=== PATIENT | male | born 1940 | race Caucasian/White ===

== ENCOUNTER → 2020-04-24 14:40 | Outpatient (CLI) | payer MEDICARE, OTHER, SELFPAY ==
[2020-04-25 09:21] LABS: COVID19 Sendout Not Detected (Not Detect)
== END ==
PROVIDERS: Visit Provider Physician Assistant
DX: Z01.812 Encounter for preprocedural laboratory examination (principal)
CPT/HCPCS: 87635

== ENCOUNTER 2020-04-27 08:02 | Day surgery (SDC) | payer MEDICARE, OTHER, SELFPAY ==
[2020-04-23 12:40] VITALS: BMI 25.5
[2020-04-27] VITALS (15 sets, daily range): BP systolic 100–168; BP diastolic 43–75; PULSE 50–83; RESP 10–18; TEMP 36.1–36.7; O2SAT 94–100; BMI 26.1
--- NOTE | 2020-04-27 07:50 | DI.RAD.S_ITS ---
PROCEDURE: XR KNEE RT 1TO2V INDICATIONS: post operative total right knee TECHNIQUE: 2 view(s) of the knee acquired. COMPARISON: None. FINDINGS: Expected postoperative alignment of right knee arthroplasty. Overlying postsurgical changes. Dictated by: Santana Rodríguez M.D. on 04/27/2020 at 16:07 Approved by: Santana Rodríguez M.D. on 04/27/2020 at 16:07
[2020-04-27] MEDS: LACTATED RINGERS 1,000 ML 42 ML IV (08:48)
[2020-04-27] MEDS: CELECOXIB 200 MG CAPSULE PO (08:48)
[2020-04-27] MEDS: ACETAMINOPHEN 325 MG TABLET 975 MG PO (08:48)
[2020-04-27] MEDS: PREGABALIN 75 MG CAPSULE PO (08:48)
--- NOTE | 2020-04-27 09:21 | PM.PREOP ---
Pre-operative Note COVID-19 COVID-19 status: Negative Result date/Date tested (Pos, Neg/Pending): 04/24/20 Interval Note History & Physical reviewed/Exam performed by Physician: Yes Changes to H&P: No
--- NOTE | 2020-04-27 09:33 | PM.OP.1 ---
Operative Date/Time/Diagnoses Date of procedure: 04/27/20 Time of procedure: 11:25 Pre-op diagnosis: Right knee osteoarthritis Post-op diagnosis: same Procedure & Clinicians Procedure: Right total knee replacement Same procedure as scheduled: Yes Indications: The patient has had progressively worsening right knee pain with radiographic changes consistent with arthritis. Non-operative management has failed and the patient has requested total knee replacement. The risks, benefits and alternatives to surgery were discussed with the patient prior to proceeding. Risks discussed included, but were not limited to, failure to relieve pain, stiffness, infection, nerve damage, deep venous thrombosis, pulmonary embolism, stroke, coma, heart attack, permanent paralysis and , as well as the potential need for eventual revision of the prosthetic. Surgeon: Chris Montoya Welding Machine Operator Gas: Samuel Cline Click Yes if Unassisted: No Anesthesia Type: General, Spinal and Local Operative Notes Findings: Severe tricompartmental osteoarthritis Closure Type: primary Specimen(s): none sent Prosthetic devices, grafts, tissues, transplants, or devices: Implants used in this procedure were manufactured by the [employer] and included the BCS II Journey total knee replacement with a size 6 cobalt chromium femur, a size 7 non porous tibial base plate, a 10 mm cross-linked polyethylene tibial insert and a 35 mm oval Elda II patella. Applied: implant(s) Estimated Blood Loss (mL): 25 Blood products transfused: none Tourniquet time (min): 48 Procedure in detail: The patient was seen in the pre-operative area, where the patient identified the right knee as the operative site and this was marked with my initials. The patient received pre-operative antibiotics, and was taken to the operating room and placed on the operative table in the supine position. After satisfactory anesthesia, a full time babysitter out was performed. The right leg was encircled with a tourniquet about the proximal thigh, and the leg was prepared from the toes to the tourniquet with ChloroPrep in the usual fashion and draped through sterile drapes. The leg was elevated and exsanguinated with Eschmark bandage and the tourniquet inflated to 250 mmHg pressure. The knee was approached through an approximately 18 cm incision centered over the patella and carried into the knee through a medial parapatellar arthrotomy. The anterior osteophytes and soft tissues were removed. The rotational landmarks of [place]'s line and the transepicondylar axis were marked on the femur with electrocautery, and intramedullary guide holes for the femur and tibia were created. The distal femoral cut was made in 6 degrees of valgus using the intramedullary guide at the primary cut setting. The proximal tibial cut was then made using the intramedullary guide, taking 9 mm of bone off the less involved side. The extension gap was checked and the rotation of the femoral component confirmed with the gap balancing system. The anterior, posterior and chamfer cuts were then made. The posterior osteophytes and soft tissues were then removed. The posterior capsule was injected with part of a mixture of 60 ml 0.25% Marcaine mixed with 20 ml Exparel and 4 mg of morphine for post-operative pain control. The remainder of this mixture was injected into the capsule and subcutaneous tissues during cement curing. The tibia was prepared with the rotation set by an extra medullary guide. Trial tibial and femoral components were then placed and the intercondylar notch cut through the femoral trial. Range of motion was 0-135 degrees, with good stability throughout the range. The patella was then cut to accommodate the patellar prosthetic. There was no need for a lateral release. The trials were then removed, and the femoral hole plugged with a bone plug. The bone was prepared with pulsatile lavage, and dried with a sponge. Cement was applied and the final prosthetics placed. Excess cement was removed during and after cement curing. After confirming there was no extruded cement posteriorly, the final tibial insert was placed. The knee was copiously irrigated and the tourniquet deflated. Hemostasis was obtained. The capsule was closed with interrupted # 2 polyester suture. The subcutaneous layer was closed with 3-0 Vicryl, and the skin with a running 3-0 V-Lock suture and Dermabond. An Aquacel Ag dressing was applied and the patient was taken to recovery having tolerated the procedure well. Complications: none Post-operative Condition: stable Disposition: PACU Plan for aftercare: The patient will be maintained on a standard total knee replacement protocol with weight bearing as tolerated. The patient will receive aspirin and sequential compression devices for DVT prophylaxis. The patient will be discharged home when safe for the home environment.
[2020-04-27] MEDS: CEFAZOLIN 2 GM/100 ML FROZ.PIGGY IV (09:55)
--- NOTE | 2020-04-27 10:28 | SUR.OPER ---
Supine on padded OR bed. Pillow under head, arms secured on padded armboards <90 degree abduction. Safety belt across torso. Non-operative leg secured with tape over blanket over lower leg. Operative leg secured in DeMayo/Ariel positioner. Foam padded brace at thigh of operative leg.
[2020-04-27] MEDS: TRANEXAMIC ACID 1,000 MG VIAL 1000 MG INJ ×2 (10:38→11:15)
[2020-04-27] MEDS: BUPIVACAINE 0.25% W/ EPI 30 ML VIAL 60 ML INJ (10:38)
[2020-04-27] MEDS: BUPIVACAINE LIPOSOME 266 MG/20 ML VIAL INJ (10:38)
[2020-04-27] MEDS: MORPHINE 4 MG/ML INJ INJ (10:40)
--- NOTE | 2020-04-27 12:11 | SUR.PHASEI ---
aroused spontaneously, answers questions, difficult to determine spinal level as pt is very sleepy. denies pain/nausea
--- NOTE | 2020-04-27 12:13 | SUR.PHASEI ---
bilateral hearing aids in place from the OR
--- NOTE | 2020-04-27 12:34 | SUR.PHASEI ---
Report given, pt stable, to floor by Daxa Mattson RN; tolerating ice chips well.
--- NOTE | 2020-04-27 12:37 | SUR.PHASEI ---
ro room 224, bed down and locked, call light within reach and scd's on pre Daxa Mattson RN
--- NOTE | 2020-04-27 12:38 | SUR.PHASEI ---
clothing bag and two personal bags, hearing aids, & glasses to room with the patient.
--- NOTE | 2020-04-27 12:46 | PC.NURSE ---
Day shift: Pt on unit from PACU at approx 1240. Very sleepy but wakes to voice. PPP strong. CMS ok as he can wiggle toes. VS WNL. RA 97%. Oriented to room and call light. MIKIE wrap w/ Aquacel is CDI. Bed alarm is on.
[2020-04-27] MEDS: LACTATED RINGERS 1,000 ML 100 ML IV (13:05)
[2020-04-27] MEDS: IBUPROFEN 400 MG TABLET PO ×3 (14:40→20:41)
[2020-04-27] MEDS: ACETAMINOPHEN 325 MG TABLET 650 MG PO ×2 (14:40→20:18)
--- NOTE | 2020-04-27 15:56 | PT.IIE ---
Current Diagnoses Unilateral primary osteoarthritis, right knee (04/27/20) Surgery Performed Operation Date: 04/27/20 10:15 Actual Procedures p Total Knee Arthroplasty(Right) - Chris Montoya MD Surgical History (Last Updated 04/23/20 @ 13:30 by Alice Baeza, RN) History of bunionectomy of right great toe (Acute) History of penile implant (Acute) History of repair of left rotator cuff (Acute) History of vasectomy (Acute) Hx of bilateral cataract extraction (Acute) Hx of eye surgery (Acute) Hx of tonsillectomy (Acute) Medical History (Last Updated 04/23/20 @ 13:30 by Alice Baeza RN) Bilateral knee pain (Acute) Easy bruisability (Acute) Hearing impaired (Acute) Heartburn (Acute) HLD (hyperlipidemia) (Acute) Hypothyroid (Acute) EH on CPAP (Acute) Osteoarthritis (Acute) RBBB (Acute) Sinus drainage (Acute) Stomach ulcer (Acute 2019) Physical Therapy Inpatient Evaluation/Re-Eval M1 PT/OT-IP Prior Functional Status Start: 04/27/20 14:44 Freq: NEEDED Status: Active Protocol: Document 04/27/20 15:33 AW (Rec: 04/27/20 15:56 AW [id number]) Medical Review Prior Functional Status Medical History Reviewed Yes Communication WNL Mobility and Gait Pt is an independent community ambulator for distances up to ~1/2 mile. He is limited by bilateral knee pain. Activities of Daily Living and IADL's Independent. 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 Social History Household Members spouse Living Arrangements House Number of Floors (Floors) Two Floors Number of Stairs To Enter/Railing? 4 ROBERT with narrow bilateral rails Home Environment High Toilet,Walk in Shower, Built-In Shower Seat Home Equipment Front Wheel Walker,Straight Cane,Grab Bars Near Toilet, Grab Bars In Shower Employment Status Retired Additional Social History Comment Pt lives with his , Vanessa, who will be able and available to assist at discharge. M2 PT-IP Current Condition Start: 04/27/20 14:44 Freq: NEEDED Status: Active Protocol: Document 04/27/20 15:33 AW (Rec: 04/27/20 15:56 AW [id number]) Physical Therapy Current Condition Current Condition Evaluation Date 04/27/20 Treatment Diagnosis s/p R TKA; impaired mobility Onset Date 04/27/20 Weight Bearing Status Weight Bearing Status Weight Bear as Tolerated M3 PT-IP Subjective Start: 04/27/20 14:44 Freq: NEEDED Status: Active Protocol: Document 04/27/20 15:33 AW (Rec: 04/27/20 15:56 AW [id number]) Subjective Physical Therapy Visit Type Type Initial Evaluation Visit Start Time 14:55 Visit Stop Time 15:28 Total Visit Minutes 33 Notes Pt plans to have L TKA in the near future Physical Therapy Visit Comments Patient Comments Pt is groggy but willing to mobilize with PT Patient Goals Pt plans to return home at discharge Therapy Pain Assessment Pain When Pain Assessed During Mobility Pain Present Pain Present Pain Reported Location right knee/anterior thight Intensity 2 Pain Management Techniques Apply Cold,Re-positioning, Timing of Activity with Medications M4 PT-IP Mobility and Gait Start: 04/27/20 14:44 Freq: NEEDED Status: Active Protocol: Document 04/27/20 15:33 AW (Rec: 04/27/20 15:56 AW [id number]) PT-Bed Mobility Assessment Supine to Sit Supine to Sit Contact Guard Assistance,1 Person Assistance Scooting Scooting to Edge of Bed Standby Assistance PT-Transfer Assessment Sit to and From Stand Sit to and from Stand Minimal Assistance,1 Person Assistance,Use of Upper Extremities Equipment Transfer Assistive Device Gait Belt,Front Wheeled Walker Transfers Transfer Destination Chair Transfer Technique Stand Step Pivot Transfer Ability Level of Assist Contact Guard Assistance Comments Mobility Comments Pt was sitting up in bed visiting with his upon therapy arrival. Supine BP was 116/53. Pt was able to complete supine to sit with CGA for support of the operative leg. He sat EOB with and without UE support; sitting BP was 129/76. He then stood with FWW min A x 1 and cues for placement of operative leg and pushoff with BUE. Pt reported lightheadedness in standing. BP after two minutes standing was 125/98. Although hemodynamic response was WNL, PT decided to truncate treatment due to lightheadedness and pallor. He was assisted to the chair with FWW, CGA, and cues for quad activation where he was positioned with call light and all needs in reach, fresh ice packs applied. Gait Assessment Gait Gait Assistance Required: Contact Guard Assist Distance (Feet) 3 Assistive Devices Assistive Device Gait Belt,Front Wheeled Walker Gait Deviations General Gait Pattern Antalgic,Decreased Stride Length,Decreased Feet Clearance,Wide Based Gait Factors Limiting Gait Function Factors Limiting Gait Function Decreased Activity Tolerance, Decreased Strength,Limited Range of Motion,Pain,Poor Balance Comments Gait Comments Transfer only due to symptoms. See mobility comments. Stair Climbing Assessment Comments Stair Climbing Comments Not assessed due to safety concerns. PT-Balance Assessment Sitting Balance and Reactions Static Sitting Balance Ability Normal Dynamic Sitting Balance Ability Normal Standing Balance and Reactions Static Standing Balance Ability Good Dynamic Standing Balance Ability Good Device Used FWW M5 PT-IP Objective Assessments Start: 04/27/20 14:44 Freq: NEEDED Status: Active Protocol: Document 04/27/20 15:33 AW (Rec: 04/27/20 15:56 AW [id number]) Orientation Orientation/Cognition Level of Alertness Alert Orientation Name,Year,Day of Week,Place, Situation Language Function Ability No Deficits Noted Safety Awareness Understands Safety Issues Memory Description No Deficits Noted Gross Range of Motion Upper Extremity ROM Assessment Within Functional Limits Lower Extremity ROM Assessment Right Impaired Strength Lower Extremity Strength Assessment Right Impaired Comments Strength Comments LLE grossly 4+/5 except knee 4 /5. Coordination Assessment Gross Coordination Gross Coordination WNL Sensation Assessment Sensation Gross Sensation WNL Muscle Tone Muscle Tone WNL Yes M6 PT-IP Treatment Start: 04/27/20 14:44 Freq: NEEDED Status: Active Protocol: Document 04/27/20 15:33 AW (Rec: 04/27/20 15:56 AW [id number]) Physical Therapy Treatment Exercises Exercises Ankle Pumps,Quad Sets,Heel Slides,Passive Knee Extension Hang Education Education Provided Precautions,Weight Bearing Status,Post-Op Packet,Safety Other Treatments Other Treatment Performed Provided education on role of PT, plan of care, weightbearing status, and safe use of FWW. M7 PT-IP Assessment and Plan Start: 04/27/20 14:44 Freq: NEEDED Status: Active Protocol: Document 04/27/20 15:33 AW (Rec: 04/27/20 15:56 AW [id number]) PT Summary Assessment and Plan Potential Rehabilitation Potential Good Status of Condition at Evaluation Evolving Summary Impairments Pain,ROM,Strength,Balance,Bed Mobility,Transfers,Gait, Activity Tolerance Assessment Summary Anjum is a 79 yo man seen for PT evaluation on POD0 following R TKA. At baseline, he is an independent community ambulator up to 1/2 mile with limitation of bilateral knee pain. He is planning to undergo L TKA in the near future. On evaluation, pt was limited due to lightheadedness and pallor but required CGA to min assist for all mobility . PT anticipates he will clear the functional goals of this plan of care and be safe to discharge to home environment with assist and outpatient PT once medically appropriate. Goals Bed Mobility Goal Standby Assistance Transfer Goal Standby Assistance,Front Wheeled Walker Gait Goal Standby Assistance,Front Wheel Walker Gait Distance 200 Other Goals - up/down 4 steps with B rails SBA Days to Meet Goals 3 Frequency of Treatment Frequency Of Treatment Twice a Day Treatment Plan Physical Therapy Treatment Plan Bed Mobility Training,Transfer Training,Gait Training, Therapeutic Exercise,Balance Retraining,Post Op Education, Discharge Planning,Hot or Cold Pack Other Recommendations and Next Treatment assess gait with FWW, review Focus ther ex, assess safety on stairs. Recommendations To Nursing Amount of Assist Needed 1 Person Assist Discharge Recommendations PT Discharge Recommendations Home with Assistance, Outpatient PT Transportation Needs at Discharge Private Vehicle
[2020-04-27] MEDS: ATORVASTATIN 20 MG TABLET PO (20:18)
[2020-04-27] MEDS: TAMSULOSIN 0.4 MG CAPSULE PO (20:18)
[2020-04-27] MEDS: DOCUSATE 100 MG CAPSULE PO (20:18)
[2020-04-27] MEDS: ASPIRIN EC 81 MG TABLET PO (20:18)
[2020-04-27] MEDS: PANTOPRAZOLE 20 MG TABLET PO (20:20)
--- NOTE | 2020-04-27 22:36 | PC.NURSE ---
Addendum entered by Satish Hansen R.N. 04/27/20 22:56: PATIENT AGREED TO IN OUT CATH, PLACED WITHOUT DIFFICULTY, DRAINING CLEAR YELLOW, 725mls out Original Note: PATIENTS BLADDER SCAN ONLY ABOUT 490ML PATIENT UP TO BATHROOM ATTEMPT TO URINATE,DOES NOT WANT IN/OUT CATH
[2020-04-28 00:02] VITALS: BP 107/65; PULSE 46; RESP 18; TEMP 36.4; O2SAT 99
[2020-04-28 03:33] VITALS: BP 130/54; PULSE 50; RESP 16; TEMP 36.4; O2SAT 98
[2020-04-28] MEDS: PANTOPRAZOLE 20 MG TABLET PO (05:04)
[2020-04-28] MEDS: LEVOTHYROXINE 125 MCG TABLET PO (05:04)
[2020-04-28] MEDS: IBUPROFEN 400 MG TABLET PO ×2 (05:04→09:30)
--- NOTE | 2020-04-28 07:12 | PM.DS.1 ---
History of Present Illness History of Present Illness Date Patient Seen: 04/28/20 Time Patient Seen: 07:12 Chief complaint: *OPB* [id number] Narrative: The history and physical are contained in the chart in a previously completed note, please refer to that note for this information. Discharge Providers Provider Discharge Date: 04/28/20 Consults: 04/27/20 12:42 Consult to Discharge Planning Routine Comment: Consult to Physical Therapy Evaluate & Treat Comment: Physician Instructions: postop TKA protocol Discharge provider: Chris Montoya MD Summary Hospital Course Discharge Diagnosis: Right knee osteoarthritis Hospital Course: The patient was admitted to the hospital and taken directly to the operating room on April 27, 2020 where he underwent a right total knee replacement. He tolerated this procedure well. On postoperative day 1 in the morning he was comfortable and had made several trips to the bathroom overnight. At the time of this dictation it is anticipated he will be ready for discharge later in the day. Status at Discharge Cognitive/behavioral status at discharge: oriented Functional status at discharge: uses cane/walker Overall status at discharge: patient is progressing back to baseline Time Spent with Patient Time spent: Less than 30 minutes Exam Vital Signs (past 8 hours): - 04/28/20 00:02 04/28/20 03:33 Temperature 97.6 F 97.5 F L Pulse Rate 46 L 50 L Respiratory Rate 18 16 Blood Pressure 107/65 130/54 L Pulse Oximetry 99 98 Oxygen Delivery Method Room Air Oxygen Flow Rate 0 Narrative Exam Narrative: Right knee wound is dressed with no drainage on the bandage. Calf is soft. Light touch and motion are intact in the right lower extremity. Discharge Plan Discharge Plan Patient Disposition: Home Discharge Med Rec/Prescriptions Prescriptions: New acetaminophen 325 mg Tablet 650 mg PO TID 30 Days Qty: 180 RF: 0 aspirin 81 mg Tablet,Delayed Release (Dr/Ec) 81 mg PO BID 42 Days Qty: 84 RF: 0 ibuprofen 400 mg Tablet 400 mg PO Q4HR 30 Days RF: 0 oxycodone 5 mg Tablet 5 mg PO Q4H PRN (Reason: Pain, Moderate (4-6)) Qty: 40 RF: 0 Continued atorvastatin 20 mg Tablet 20 mg PO BEDTIME RF: 0 polyethylene glycol 3350 [Miralax] 17 gram Powder In Packet 17 g PO DAILY RF: 0 tamsulosin 0.4 mg Capsule 0.4 mg PO BEDTIME RF: 0 omeprazole 20 mg Tablet,Delayed Release (Dr/Ec) 20 mg PO BID RF: 0 levothyroxine 125 mcg Capsule 125 mcg PO DAILY RF: 0 melatonin 10 mg Tablet 20 - 40 mg PO BEDTIME PRN (Reason: Sleep) RF: 0 Flonase Allergy Relief 2 spray intranasal BID PRN (Reason: allergies) RF: 0 Discontinued acetaminophen 500 mg Capsule 500 mg PO DAILY RF: 0 Follow up/Referrals: Chris Montoya MD [Physician] - 2 Weeks Discharge Orders: Discharge (Order); Ordered 04/28/20 Ordered By: Chris Montoya Provider Discharge Instructions Diet: Diet as Tolerated and Regular Activity: You may bear weight as tolerated on your right leg. Cold/Heat Therapy: Apply ice for 15 minutes of every hour as needed for pain control to the right knee. Skin/Wound/Dressing Care Report to your healthcare provider any signs of infection, such as:: chills, fever, night sweats, increased pain and unusual redness Dressing: Leave the Evelio wrap on the knee for 3 days after surgery. You may then remove the Evelio wrap and shower with the deeper dressing in place. Leave the deeper dressing on until follow-up. If the deeper dressing becomes saturated with either water or blood, please call the office. Visit Report/Discharge Packet Instructions: DI for Knee Replacement Stand Alone Forms: Surgery Discharge Discharge Data Attending Provider: Chris Montoya Quality VTE Deep Vein Thrombosis/Pulmonary Embolism Present on Admission: No
[2020-04-28 08:17] VITALS: BP 114/54; PULSE 49; RESP 16; TEMP 36.8; O2SAT 97
[2020-04-28] MEDS: polyethylene glycoL 3350 17 GM POWD.PACK PO (09:30)
[2020-04-28] MEDS: ASPIRIN EC 81 MG TABLET PO (09:30)
[2020-04-28] MEDS: ACETAMINOPHEN 325 MG TABLET 650 MG PO (09:31)
[2020-04-28] MEDS: DOCUSATE 100 MG CAPSULE PO (09:31)
--- NOTE | 2020-04-28 10:14 | PT.IPTN ---
Current Diagnoses Unilateral primary osteoarthritis, right knee (04/27/20) Surgery Performed Operation Date: 04/27/20 10:15 Actual Procedures p Total Knee Arthroplasty(Right) - Chris Montoya MD Physical Therapy Treatment Note M2 PT-IP Current Condition Start: 04/27/20 14:44 Freq: NEEDED Status: Active Protocol: Document 04/27/20 15:33 AW (Rec: 04/27/20 15:56 AW [id number]) Physical Therapy Current Condition Current Condition Evaluation Date 04/27/20 Treatment Diagnosis s/p R TKA; impaired mobility Onset Date 04/27/20 Weight Bearing Status Weight Bearing Status Weight Bear as Tolerated M3 PT-IP Subjective Start: 04/27/20 14:44 Freq: NEEDED Status: Active Protocol: Document 04/28/20 09:45 CLB (Rec: 04/28/20 10:48 CLB [id number]) Subjective Physical Therapy Visit Type Type Treatment Note Visit Start Time 09:45 Visit Stop Time 10:14 Total Visit Minutes 29 Number of RAIL TRANSPORTATION OPERATOR Visits 1 Physical Therapy Visit Comments Patient Comments Pt willing to do therapy Therapy Pain Assessment Pain When Pain Assessed During Mobility Pain Present Pain Present Pain Reported Location right knee/anterior thight Intensity 2 Scale Used Numeric (0 - 10) Pain Management Techniques Apply Cold,Re-positioning, Timing of Activity with Medications M4 PT-IP Mobility and Gait Start: 04/27/20 14:44 Freq: NEEDED Status: Active Protocol: Document 04/28/20 09:45 CLB (Rec: 04/28/20 10:48 CLB [id number]) PT-Bed Mobility Assessment Supine to Sit Supine to Sit Standby Assistance Sit to Supine Sit to Supine Standby Assistance Scooting Scooting to Edge of Bed Standby Assistance PT-Transfer Assessment Sit to and From Stand Sit to and from Stand Standby Assistance,Contact Guard Assistance,Use of Upper Extremities Equipment Transfer Assistive Device Gait Belt,Front Wheeled Walker Transfers Transfer Destination Bed,Chair,Wheelchair Transfer Technique Stand Step Pivot Transfer Ability Level of Assist Standby Assistance,Contact Guard Assistance,Use of Upper Extremities Comments Mobility Comments Pt in chair upon arrival, pt stood SBA and ambulated to sink to comb hair, pt required SBA for standing balance while combing his hair. Pt ambulated to therapy stairs ~ 300ft w/FWW SBA-CGA and WC follow. Pt climbed three steps with bilateral rails x2 with SBA-CGA and cues for sequencing. Pt transferred to WC to return to room. Pt required SBA for bed mobility and performed theraputic exercises in bed. Pt transferred to chair SBA. Pt left in reclined chair with all needs within reach. RN informed of pt's mobility. Gait Assessment Gait Gait Assistance Required: Standby Assistance,Contact Guard Assist Distance (Feet) 300 Assistive Devices Assistive Device Gait Belt,Front Wheeled Walker Gait Deviations General Gait Pattern Antalgic,Decreased Stride Length,Decreased Feet Clearance,Wide Based Gait Factors Limiting Gait Function Factors Limiting Gait Function Decreased Activity Tolerance, Decreased Strength,Limited Range of Motion,Pain Comments Gait Comments Pt with no dizziness or lightheadedness this session. Pt able to ambulate ~300ft with CGA then SBA using FWW with good safety awareness with obstacles in mayers and steady gait. Stair Climbing Assessment Evaluation Level of Assist On Stairs Standby Assistance,Contact Guard Assistance Devices Stair Climbing Assistive Devices Left Railing,Right Railing Technique/Endurance Stair Climbing Direction Ascend and Descend Stair Climbing Technique Step to Step Number of Steps Climbed 3 Stair Climbing Set # Repetitions (reps) 2 Comments Stair Climbing Comments Pt able to climb stairs after demonstration for sequencing, pt climbed three steps with bilateral rails CGA then was able to perform a second time recalling sequencing and SBA. M5 PT-IP Objective Assessments Start: 04/27/20 14:44 Freq: NEEDED Status: Active Protocol: Document 04/27/20 15:33 AW (Rec: 04/27/20 15:56 AW [id number]) Orientation Orientation/Cognition Level of Alertness Alert Orientation Name,Year,Day of Week,Place, Situation Language Function Ability No Deficits Noted Safety Awareness Understands Safety Issues Memory Description No Deficits Noted Gross Range of Motion Upper Extremity ROM Assessment Within Functional Limits Lower Extremity ROM Assessment Right Impaired Strength Lower Extremity Strength Assessment Right Impaired Comments Strength Comments LLE grossly 4+/5 except knee 4 /5. Coordination Assessment Gross Coordination Gross Coordination WNL Sensation Assessment Sensation Gross Sensation WNL Muscle Tone Muscle Tone WNL Yes M6 PT-IP Treatment Start: 04/27/20 14:44 Freq: NEEDED Status: Active Protocol: Document 04/28/20 09:45 CLB (Rec: 04/28/20 10:48 CLB [id number]) Physical Therapy Treatment Exercises Exercises Ankle Pumps,Gluteal Sets,Heel Slides,Straight Leg Raises, Short Arc Quads,Passive Knee Extension Hang,Seated Knee Flexion/Extension Education Education Provided Precautions,Weight Bearing Status,Post-Op Packet,Safety M7 PT-IP Assessment and Plan Start: 04/27/20 14:44 Freq: NEEDED Status: Active Protocol: Document 04/28/20 09:45 CLB (Rec: 04/28/20 10:48 CLB [id number]) PT Summary Assessment and Plan Summary Impairments Pain,ROM,Strength,Balance,Bed Mobility,Transfers,Gait, Activity Tolerance Assessment Summary Pt able to ambulate ~300ft w/ FWW/CGA then SBA with good safety awareness and steady gait. Pt climbed two sets of three steps safely. Pt able to get in and out of bed with SBA and performed theraputic exercises. Pt seems able to d/ c home when medically stable. Goals Bed Mobility Goal Standby Assistance Transfer Goal Standby Assistance,Front Wheeled Walker Gait Goal Standby Assistance,Front Wheel Walker Gait Distance 200 Other Goals - up/down 4 steps with B rails SBA Days to Meet Goals 3 Frequency of Treatment Frequency Of Treatment Twice a Day Treatment Plan Physical Therapy Treatment Plan Bed Mobility Training,Transfer Training,Gait Training, Therapeutic Exercise,Balance Retraining,Post Op Education, Discharge Planning,Hot or Cold Pack Recommendations To Nursing Amount of Assist Needed 1 Person Assist Discharge Recommendations PT Discharge Recommendations Home with Assistance, Outpatient PT Transportation Needs at Discharge Private Vehicle
--- NOTE | 2020-04-28 11:10 | CM.DANOTE ---
Addendum entered by Elise Lomeli 04/28/20 11:41: Patient uses CPAP at night. KJS Original Note: DCP/Assessment: Reviewed chart. Patient is a 79yr old male admitted to for elective right TKA performed on 04-27-[address] Montoya. Primary payor is 1)Medicare 2)[employer]. Met with patient explained CM/SW role. Patient reports that he hopes to go home today. Therapy evaluation pending. Patient reports that he resides in [place], [place]. Patient plans to do outpatient therapy in [place], [place]. Patient has walker and does not anticipate any other d/c planning needs. P: Anticipate home today. Continue to follow as needed. ALISSA Patrick Discharge Planning/Care Management CM Discharge Assessment Start: 04/28/20 11:08 Freq: Status: Active Protocol: Document 04/28/20 11:08 STEPHEN (Rec: 04/28/20 11:10 KJS [id number]) Discharge Planning Assessment Assigned Wash Operator ALISSA Patrick Contact Information Vanessa Pierre (spouse) [phone] Advance Directives? Yes: feels it's part of the living will History Provided By Patient,Medical Record Prior Living Arrangements House Household Members spouse Type of transporation used prior to Drives own vehicle admit Independent with ADL's Yes Is patient alert and oriented? Yes Caregiver for Another No DME Already Rented / Owned FWW / Walker Patient/Family Preference OP PT Therapy Barriers to Discharge No Discharge Plan Home Transportation Arrangement Spouse to provide transport Referrals Initiated None needed Whiteboard Updated in Patient Room with Yes name and ext. # of Wash Operator Review Status In Process Next Review Type Continued Stay Review Pre-Anesthesia Assessment Start: 04/23/20 12:40 Freq: Status: Complete Protocol: Document 04/23/20 12:40 CAB (Rec: 04/23/20 13:44 CAB [id number]) Pre-Anesthesia Assessment PAC Comment Difficult IV start Preferred Name Anjum Patient Information Reviewed Via Phone Assessment Assessment Completed With Patient,Spouse Diagnostic Results BMP/CMP,CBC,EKG Comment Outside labs/EKG scanned to record. COVID-19 screen scheduled 04/24/20 @ Primary Care Provider Mark Stephen Seen Specialist in Last 12 Months Yes Specialist Seen Orthopedist Primary Language Malian Structural Engineering Technician Required No Height 177.8 cm Weight 80.739 kg Body Mass Index (BMI) 25.5 Hearing Ability Hard of Hearing,Use of Hearing Aid Visual Assist Glasses Dentition Type Teeth, Natural Present,Dental Implants Barriers to Learning Auditory Other Aids Yes: CPAP Hx Anesthesia Reactions No Hx Family Anesthesia Reaction No Hx Malignant Hyperthermia No Hx Blood Transfusions Yes: GI bleed 2019 transfused 5 units Hx Blood Transfusion Reaction No Anesthesia Review Requested No alcohol intake never Smoking Status Never smoker Substance Use Type does not use Pain Present Pain Reported Musculoskeletal Symptoms Abnormal Gait,Back Pain, Difficulty Walking,Joint Pain History of Falling (Recent or History of No ) Patient is completely paralyzed or No completely immobile Mental Status Oriented to own ability Is patient on oxygen? No Does patient have GUADARRAMA/SOB No Hx Sleep Apnea Yes CPAP/BIPAP use prescribed and used routinely Will Bring CPAP/BIPAP DOS Yes Currently Taking a Beta Prashanth No Can You Climb a Flight of Stairs Without Yes SOB Hx Chest Pain No Hx SOB No Hx Syncope or Dizziness No Anti-Coagulant Therapy No Has a Hardboard Panel Printer No Cardiac Testing No Hx Pacemaker/ICD No Pacemaker Rep Required? No Diet Type At Home Regular dysphagia No Gastrointestinal Symptoms Reflux Genitourinary Symptoms Change in Urinary Stream Urinary Catheter Present No Hx Urinary Self Catheterization No Diabetes No Hx Drug Resistant Organism No Presence of External or Internal Medical Yes: CPAP, bilat eye lens, Devices penile implant Have you had any close contact with No someone diagnosed with COVID-19? Evaluation/Screening for possible COVID- Yes 19 infection completed? Marital Status Lives With spouse Prior Living Arrangements House Number of Floors (Floors) Two Floors Support System Child/Children,Spouse Patient Discharge Plan Description Return Home Comment Pt advised overnight length of stay per surgeon Feels Safe in Current Environment Yes Been Physically Hurt or Threatened By a No Person in Current Environment Do you have thoughts of harming yourself None or others? Are you currently considering suicide? No Do you have a plan to hurt yourself or No Plan others? Do You Have Any Spiritual Beliefs That No May Affect Your HC Choices? Do You Have Any Cultural Practices That No May Affect Your HC Choices? 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 Yes: feels it's part of the living will Power of Photographic Spotter Unsure PAC Instructions Bring CPAP/BIPAP,Durable medical equipment,Medications to take/avoid,Nasal antibiotic ,No ETOH/petroleum product on skin DOS,NPO,Post-op transportation,Pre-surgical wash,Sensory aids,Sturdy shoes /comfortable clothes,Do not bring valuables and remove jewelry
--- NOTE | 2020-04-28 11:26 | PC.NURSE ---
Day shift: Paperwork signed and all questions answered. Pt has all personal belongings and scrips. Taken to car driven by his spouse by BUSINESS MANAGEMENT INTERN in WC. MIKIE wrap is CDI. CMS good. PPP. Pain has been minimal with only needing Tylenol and Ibuprofen.
== END 2020-04-28 11:29 | disposition home or self-care (01) ==
LOC: OR 08:04 → AC 10:40
PROVIDERS: Referring Provider Orthopaedic Surgery; Visit Provider Orthopaedic Surgery
PROC: 0SRC0JZ Replacement of Right Knee Joint with Synthetic Substitute, Open Approach (ICD-10-PCS; CPT 27447; principal; 2020-04-27 10:15)
DX: M17.11 Unilateral primary osteoarthritis, right knee (principal)
CPT/HCPCS: 27447; 73560; 97110; 97116; 97161; C1776; C9290; J0360; J0690; J1100; J2250; J2270; J2274; J2405; J3010

== ENCOUNTER → 2020-05-04 12:45 | Outpatient (CLI) | payer MEDICARE, OTHER, SELFPAY ==
[2020-04-27 15:55] VITALS: BMI 26.1
--- NOTE | 2020-05-04 | DI.US.S_ITS ---
PROCEDURE: US PERIPH VENOUS LOW EXTREM RT INDICATIONS: RT KNEE PAIN TECHNIQUE: Real-time imaging, as well as color and pulse Doppler interrogation, were performed of the lower extremity deep veins from the inguinal ligament to the popliteal fossa. COMPARISON: [facility], CR, XR KNEE RT 1TO2V, 04/27/2020, 11:52. FINDINGS: The common femoral, femoral and popliteal veins are normally compressible, and free of intraluminal thrombus. Color and pulse Doppler demonstrate normal phasic intraluminal flow. There is normal augmentation response to distal compression maneuver. There is a complex mass seen within the popliteal fossa that measures 2.1 x 1.5 x 1.7 cm. IMPRESSION: Negative for deep venous thrombosis. 2.1 cm complex mass within the fossa, which is likely related to postoperative hematoma in this patient. Dictated by: Christian Spencer M.D. on 05/04/2020 at 12:54 Approved by: Christian Spencer M.D. on 05/04/2020 at 12:55
== END ==
PROVIDERS: Referring Provider Orthopaedic Surgery; Visit Provider Orthopaedic Surgery
DX: M25.561 Pain in right knee (principal); M89.9 Disorder of bone, unspecified
CPT/HCPCS: 93971

== ENCOUNTER → 2021-02-05 14:01 | Outpatient (CLI) | payer MEDICARE, OTHER, SELFPAY ==
[2020-04-27 15:55] VITALS: BMI 26.1
--- NOTE | 2021-02-05 14:03 | DI.MRI.S_ITS ---
PROCEDURE: MR LUMBAR SPINE WO CON INDICATIONS: Spinal stenosis, lumbar region with neurogenic cla TECHNIQUE: Noncontrast sagittal T1 spin echo and T2 fast echo, sagittal STIR, axial T1 and T2 fast spin echo through the lumbar spine. In cases with scoliosis, additional coronal T2 fast spin echo may be performed. COMPARISON: [facility], RG, SPINE LUMB 2 OR 3VW, 12/21/2020, 10:02. [facility] [place], CR, XR LUMBAR SPINE WITH OBLIQUES, 01/25/2021, 13:12. FINDINGS: Image quality: This examination is limited by involuntary motion artifact. Alignment and Curvature: Mild levoconvex scoliotic curvature is noted. There is minimal retrolisthesis seen at L1-L2, with mild retrolisthesis at L2-L3. Minimal retrolisthesis is seen at the L3-L4 level. Bone Marrow: Marrow is of normal overall signal. No acute vertebral body compression fractures. There is a chronic anterior wedge deformity seen of L1, with 30-40% loss of height. Approximately 10% loss of height can be seen at L2, without acute features. Spinal Cord: Conus medullaris terminates at the L1-L2 level. Visualized cord demonstrates normal signal and size. Paraspinous Soft Tissues: No paravertebral masses. T12-L1: The disc height and disc signal are relatively well preserved. No neural foraminal or central canal narrowing can be seen. L1-L2: Mild loss of disc height is seen. Loss of disc signal is seen. Bridging endplate osteophytes are seen. Mild generalized disc bulge is seen. Mild facet joint hypertrophy is seen. No significant neural foraminal or central canal narrowing can be seen. L2-L3: Moderate to severe loss of disc height and disc signal can be seen. Bridging endplate osteophytes are seen. Moderate disc bulge is seen, which is eccentric to the left. Mild to moderate facet hypertrophy can be seen at this level. Moderate bilateral neural foraminal narrowing is seen. Mild to moderate central canal narrowing is seen. L3-L4: Mild loss of disc height is seen. Loss of disc signal is seen. Moderate disc bulge is seen, which is eccentric to the right. Mild to moderate facet hypertrophy is seen at this level. There is moderate left-sided and at least moderate right-sided neural foraminal narrowing seen. There is a degree of compression seen upon the exiting right L3 nerve root. Moderate central canal narrowing is seen. L4-L5: The disc height is well-preserved. Loss of disc signal is seen at this level. Moderate disc bulge is seen, which is eccentric to the right. There is a central/right disc protrusion. There is moderate to prominent right-sided and moderate left-sided facet hypertrophy seen. There is moderate left-sided and at least moderate right-sided neural foraminal narrowing seen. There is a degree of compression seen upon the exiting right L4 nerve root. Moderate central canal narrowing is seen. L5-S1: The disc height is well-preserved. Loss of disc signal is seen at this level. Moderate disc bulge is seen, which is eccentric to the right. Moderate facet joint hypertrophy is seen. There is at least moderate right-sided neural foraminal narrowing seen, with associated compression upon the exiting right L5 nerve root. No significant left-sided neural foraminal narrowing is seen. The central canal is widely patent. IMPRESSION: Multiple levels of degenerative change can be seen, including compression upon the exiting right L3, L4, and L5 nerve roots. Dictated by: Christian Spencer M.D. on 02/05/2021 at 15:41 Approved by: Christian Spencer M.D. on 02/05/2021 at 15:46
== END ==
PROVIDERS: PCP Internal Medicine; Referring Provider Physical Medicine & Rehabilitation Pain Medicine; Visit Provider Physical Medicine & Rehabilitation Pain Medicine
DX: M48.062 Spinal stenosis, lumbar region with neurogenic claudication (principal); M47.816 Spondylosis without myelopathy or radiculopathy, lumbar region; M47.817 Spondylosis without myelopathy or radiculopathy, lumbosacral region
CPT/HCPCS: 72148

== ENCOUNTER → 2021-05-29 11:26 | Outpatient (CLI) | payer MEDICARE, OTHER, SELFPAY ==
[2020-04-27 15:55] VITALS: BMI 26.1
[2021-05-29 13:01] LABS: COVID19 -Nasal RAPID Negative (Negative)
== END ==
PROVIDERS: PCP Internal Medicine; Visit Provider Physician Assistant
DX: Z01.812 Encounter for preprocedural laboratory examination (principal); Z20.822 Contact with and (suspected) exposure to COVID-19
CPT/HCPCS: 87635; C9803

== ENCOUNTER 2021-06-01 09:24 | Observation (INO) | payer MEDICARE, OTHER, SELFPAY ==
[2020-04-27 15:55] VITALS: BMI 26.1
[2021-05-25 12:50] VITALS: BMI 27.3
[2021-05-31] VITALS (18 sets, daily range): BP systolic 104–161; BP diastolic 52–84; PULSE 38–75; RESP 12–18; TEMP 35.7–37.2; O2SAT 92–100; BMI 27.3
--- NOTE | 2021-05-31 06:30 | DI.RAD.S_ITS ---
PROCEDURE: XR KNEE LT 1TO2V INDICATIONS: post op total knee TECHNIQUE: 2 view(s) of the knee acquired. COMPARISON: [facility], CR, XR KNEE RT 1TO2V, 04/27/2020, 11:52. FINDINGS: Bones: Patient is status post knee joint arthroplasty. Hardware components are in expected positions. Visualized bony structures are intact. Soft tissues: Overlying postoperative changes are noted. IMPRESSION: Status post interval left total knee arthroplasty without acute hardware complication. Expected overlying postoperative soft tissue changes. Dictated by: Jaspal Burnett M.D. on 05/31/2021 at 10:27 Approved by: Jaspal Burnett M.D. on 05/31/2021 at 10:29
[2021-05-31] MEDS: ACETAMINOPHEN 325 MG TABLET 975 MG PO (07:06)
[2021-05-31] MEDS: CELECOXIB 200 MG CAPSULE PO (07:06)
[2021-05-31] MEDS: LACTATED RINGERS 1,000 ML 42 ML IV (07:11)
--- NOTE | 2021-05-31 07:32 | PM.PREOP ---
Pre-operative Note COVID-19 COVID-19 status: Negative Result date/Date tested (Pos, Neg/Pending): 05/29/21 Interval Note History & Physical reviewed/Exam performed by Physician: Yes Changes to H&P: No
[2021-05-31] MEDS: PREGABALIN 75 MG CAPSULE PO (07:35)
--- NOTE | 2021-05-31 07:35 | P.OP_ITS ---
Operative Date/Time/Diagnoses Date of procedure: 05/31/21 Time of procedure: 09:27 Pre-op diagnosis: Left knee osteoarthritis Post-op diagnosis: same Procedure & Clinicians Procedure: Left total knee replacement Same procedure as scheduled: Yes Indications: The patient has had progressively worsening left knee pain with radiographic changes consistent with arthritis. Non-operative management has failed and the patient has requested total knee replacement. The risks, benefits and alternatives to surgery were discussed with the patient prior to proceeding. Risks discussed included, but were not limited to, failure to relieve pain, stiffness, infection, nerve damage, deep venous thrombosis, pulmonary embolism, stroke, coma, heart attack, permanent paralysis and , as well as the potential need for eventual revision of the prosthetic. Surgeon: Chris Montoya De Icer Finisher: Samuel Cline Anesthesia Type: Local Operative Notes Findings: Severe lateral and patellofemoral osteoarthritis with relative preservation of the medial compartment. Valgus deformity with hypoplastic lateral femoral condyle. Closure Type: primary Specimen(s): none sent Prosthetic devices, grafts, tissues, transplants, or devices: Implants used in this procedure were manufactured by the [employer] and [employer] and included the BCS II Journey total knee replacement with a size 6 cobalt chromium femoral component, a size 7 non porous tibial base plate, a 9 mm cross-linked polyethylene tibial insert and a 35 mm oval Elda II patella. Applied: implant(s) Estimated Blood Loss (mL): 50 Blood products transfused: none Tourniquet time (min): 54 Procedure in detail: The patient was seen in the pre-operative area, where the left knee was identified as the operative site and this was marked with my initials. The patient received pre-operative antibiotics, and was taken to the operating room and placed on the operative table in the supine position. After satisfactory anesthesia, a assistant associate full professor out was performed. The left leg was encircled with a tourniquet about the proximal thigh, and the leg was prepared from the toes to the tourniquet with ChloroPrep in the usual fashion and draped through sterile drapes. The leg was elevated and exsanguinated with Eschmark bandage and the tourniquet inflated to 250 mmHg pressure. The knee was approached through an approximately 18 cm incision centered over the patella and carried into the knee through a medial parapatellar arthrotomy. The anterior osteophytes and soft tissues were removed. The rotational landmarks of [place]'s line and the transepicondylar axis were marked on the femur with electrocautery, and intramedullary guide holes for the femur and tibia were created. The distal femoral cut was made in 6 degrees of valgus using the intramedullary guide at the primary cut setting. The proximal tibial cut was then made using the intramedullary guide, taking 7 mm of bone off the less involved medial side. The extension gap was checked and the rotation of the femoral component confirmed with the gap balancing blocks. The anterior, posterior and chamfer cuts were then made. The posterior osteophytes and soft tissues were then removed. The posterior capsule was injected with part of a mixture of 60 ml 0.25% Marcaine mixed with 20 ml Exparel and 4 mg of morphine for post-operative pain control. The remainder of this mixture was injected into the capsule and subcutaneous tissues during cement curing. The tibia was prepared with the rotation set by an extra medullary guide. Trial tibial and femoral components were then placed and the intercondylar notch cut through the femoral trial. Range of motion was 0-140 degrees, with good stability throughout the range. The patella was then cut to accommodate the patellar prosthetic. There was no need for a lateral release. The trials were then removed, and the femoral hole plugged with a bone plug. The bone was prepared with pulsatile lavage, and dried with a sponge. Cement was applied and the final prosthetics placed. Excess cement was removed during and after cement curing. After confirming there was no extruded cement posteriorly, the final tibial insert was placed. The knee was copiously irrigated and the tourniquet deflated. Hemostasis was obtained. The capsule was closed with interrupted # 2 polyester sutures. The subcutaneous layer was closed with 3-0 Vicryl, and the skin with a running 3-0 V-Lock suture and Dermabond. An Aquacel Ag dressing was applied and the patient was taken to recovery having tolerated the procedure well. Post-operative Condition: stable Disposition: PACU Plan for aftercare: The patient will be maintained on a standard total knee replacement protocol with weight bearing as tolerated. The patient will receive aspirin and sequential compression devices for DVT prophylaxis. The patient will be discharged home when safe for the home environment.
[2021-05-31] MEDS: TRANEXAMIC ACID 1,000 MG VIAL 1000 MG INJ ×2 (08:00→08:57)
[2021-05-31] MEDS: CEFAZOLIN 1 GM VIAL 2 GM IV (08:01)
--- NOTE | 2021-05-31 08:12 | SUR.OPER ---
Supine on padded OR bed. Pillow under head, arms secured on padded armboards <90 degree abduction. Safety belt across torso. Non-operative leg secured with tape over blanket over lower leg. Operative leg secured in DeMayo/Ariel/Nathe positioner. Foam padded brace at thigh of operative leg.
[2021-05-31] MEDS: BUPIVACAINE LIPOSOME 266 MG/20 ML VIAL INJ (08:22)
[2021-05-31] MEDS: BUPIVACAINE 0.25% W/ EPI 30 ML VIAL 60 ML INJ (08:22)
[2021-05-31] MEDS: MORPHINE 4 MG/ML INJ INJ (08:23)
[2021-05-31] MEDS: OXYCODONE IR 5 MG TABLET PO ×2 (10:03→21:10)
--- NOTE | 2021-05-31 10:16 | SUR.PHASEI ---
Normal PACUstay, medicated with percolone, 1010 report attempted, RN not available. Awaiting a call back.
--- NOTE | 2021-05-31 10:43 | SUR.PHASEI ---
Wade called back, report given, pt remained stable through out PACU stay, brought up to room 225 on room air. Bed down, locked, SCD's on. Wade and Corie both in room with pt and he was left in stable condition eating the rest of his applesauce.
[2021-05-31] MEDS: LACTATED RINGERS 1,000 ML 100 ML IV ×2 (11:30→22:24)
--- NOTE | 2021-05-31 13:43 | PC.NURSE ---
Patient received from PACU to room 225, oriented to room and call light. VSS, denies pain, denies shortness of breath. +CMS, with left knee dressing and jennifer wrap in place. Call light and urinal placed within reach. Monitor for void. Continue to monitor.
[2021-05-31] MEDS: ACETAMINOPHEN 325 MG TABLET 650 MG PO ×2 (14:14→20:41)
[2021-05-31] MEDS: IBUPROFEN 400 MG TABLET PO ×3 (14:14→20:42)
--- NOTE | 2021-05-31 15:27 | PT.IIE ---
Current Diagnoses Unilateral primary osteoarthritis, left knee (05/31/21) Surgery Performed Operation Date: 05/31/21 07:45 Actual Procedures p Total Knee Arthroplasty(Left) - Chris Montoya MD Medical History (Last Updated 04/23/20 @ 13:30 by Alice Baeza RN) Bilateral knee pain Easy bruisability Hearing impaired Heartburn HLD (hyperlipidemia) Hypothyroid EH on CPAP Osteoarthritis RBBB Sinus drainage Stomach ulcer (2019) Physical Therapy Inpatient Evaluation/Re-Eval M1 PT/OT-IP Prior Functional Status Start: 05/31/21 15:26 Freq: NEEDED Status: Active Protocol: Document 05/31/21 15:27 DLM (Rec: 05/31/21 15:40 DLM [id number]) Medical Review Prior Functional Status Medical History Reviewed Yes Diet/Fluid Consistency Regular Communication WFL, wears glasses all the time, hearing aides Mobility and Gait Independent without device, goes for walks in community Activities of Daily Living and IADL's Independent Prior Functional Level (Other details) he reports he recovered well after 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 4 with bilateral rails Home Environment High Toilet,Walk in Shower, Built-In Shower Seat Home Equipment Front Wheel Walker,Straight Cane,Grab Bars Near Toilet, Grab Bars In Shower Employment Status Retired Additional Social History Comment CPAP at home M2 PT-IP Current Condition Start: 05/31/21 15:26 Freq: NEEDED Status: Active Protocol: Document 05/31/21 15:27 DLM (Rec: 05/31/21 15:40 DLM [id number]) Physical Therapy Current Condition Current Condition Evaluation Date 05/31/21 Treatment Diagnosis Left TKA, impaired gait/ mobility Onset Date 05/31/21 Precautions Other Precautions low HR after surgery Weight Bearing Status Weight Bearing Status Weight Bear as Tolerated M3 PT-IP Subjective Start: 05/31/21 15:26 Freq: NEEDED Status: Active Protocol: Document 05/31/21 15:27 DLM (Rec: 05/31/21 15:40 DLM [id number]) Subjective Physical Therapy Visit Type Type Initial Evaluation Visit Start Time 15:00 Visit Stop Time 15:27 Total Visit Minutes 27 Number of NEEDLE PROCESS FELT GOODS SUPERVISOR Visits 0 Physical Therapy Visit Comments Patient Comments He has no pain in his left knee at rest. Once back in bed he reports feeling better but even moving his head makes him a little dizzy. Patient Goals discharge home with his and out-pt PT Therapy Pain Assessment Pain When Pain Assessed During Mobility Pain Present Pain Present Pain Reported Location l knee Intensity 2 Scale Used Numeric (0 - 10) Description Aching,With Movement Pain Management Techniques Apply Cold,Elevation M4 PT-IP Mobility and Gait Start: 05/31/21 15:26 Freq: NEEDED Status: Active Protocol: Document 05/31/21 15:27 DL (Rec: 05/31/21 15:40 DL [id number]) PT-Bed Mobility Assessment Supine to Sit Supine to Sit Standby Assistance Sit to Supine Sit to Supine Standby Assistance Scooting Scooting to Edge of Bed Independent PT-Transfer Assessment Sit to and From Stand Sit to and from Stand Contact Guard Assistance,Use of Upper Extremities Equipment Transfer Assistive Device Gait Belt,Front Wheeled Walker Transfer Ability Level of Assist Use of Upper Extremities Comments Mobility Comments sat edge of bed and stood edge of bed but did not progress to transfers due to light- headed/dizziness with activity , he attempted to urinate with urinal at EOB but unable. Vitals signs: seated EOB: BP 127/59, HR 47 supine BP 117/55, HR 43 supine BP 109/56, HR 42 Gait Assessment Factors Limiting Gait Function Factors Limiting Gait Function Limited Range of Motion,Pain Comments Gait Comments did not progress to gait at this time due to light-headed/ dizziness when up PT-Balance Assessment Sitting Balance and Reactions Static Sitting Balance Ability Good Dynamic Sitting Balance Ability Good Standing Balance and Reactions Static Standing Balance Ability Good Dynamic Standing Balance Ability Fair Device Used FWW M5 PT-IP Objective Assessments Start: 05/31/21 15:26 Freq: NEEDED Status: Active Protocol: Document 05/31/21 15:27 DLM (Rec: 05/31/21 15:40 [facility] [id number]) Orientation Orientation/Cognition Level of Alertness Alert Orientation Name,Age,Birthday,Month,Date, Year,Day of Week,Place, Situation Language Function Ability No Deficits Noted Safety Awareness Understands Safety Issues Memory Description No Deficits Noted Gross Range of Motion Upper Extremity ROM Assessment Bilaterally Impaired Impairments hx rotator cuff sx left Lower Extremity ROM Assessment Left Impaired Impairments knee 20-90 degrees AROM Strength Upper Extremity Strength Assessment Within Functional Limits Lower Extremity Strength Assessment Left Impaired Hip SLR with extensor lag Knee at least 3+/5 Ankle DF 4+/5 Coordination Assessment Gross Coordination Gross Coordination WNL Sensation Assessment Sensation Gross Sensation Left LE Impaired Sensation Description Numbness Comments Sensation Comments mild numbness in left LE post- op, jennifer wrap in place Muscle Tone Muscle Tone WNL Yes M6 PT-IP Treatment Start: 05/31/21 15:26 Freq: NEEDED Status: Active Protocol: Document 05/31/21 15:27 DLM (Rec: 05/31/21 15:40 DLM [id number]) Physical Therapy Treatment Education Education Provided Weight Bearing Status,Safety M7 PT-IP Assessment and Plan Start: 05/31/21 15:26 Freq: NEEDED Status: Active Protocol: Document 05/31/21 15:27 DLM (Rec: 05/31/21 15:40 DLM [id number]) PT Summary Assessment and Plan Potential Rehabilitation Potential Good Status of Condition at Evaluation Evolving Summary Impairments Pain,ROM,Strength,Balance,Bed Mobility,Transfers,Gait, Activity Tolerance Assessment Summary Anjum is alert and resting in bed. He is eager to get up to try to use the toilet. He sat edge of bed and stood at the edge of bed this visit. He developed light-headedness/ dizziness with sitting and standing that does not fully resolve until back in bed. He is moving well but will progress his mobility slowly until his dizziness resolves when up. His Nurse is aware of his symptoms. Pt attempted to use urinal at bedside but was unable to void at this time. Pt left resting in bed with nursing monitoring him. Will follow-up tomorrow. Will work towards his goal of discharge home with his to assist. Goals Bed Mobility Goal Independent Transfer Goal Independent,Front Wheeled Walker Gait Goal Standby Assistance,Front Wheel Walker Gait Distance 150 feet Other Goals Up and down 4 steps with bilateral rails and SBA Days to Meet Goals 2 Frequency of Treatment Frequency Of Treatment Twice a Day Treatment Plan Physical Therapy Treatment Plan Bed Mobility Training,Transfer Training,Gait Training, Therapeutic Exercise,Balance Retraining,Post Op Education, Discharge Planning,Hot or Cold Pack Recommendations To Nursing Amount of Assist Needed 1 Person Assist Discharge Recommendations PT Discharge Recommendations Home with Assistance, Outpatient PT Transportation Needs at Discharge Private Vehicle
[2021-05-31] MEDS: SODIUM CHLORIDE 0.9% 250 ML 1000 ML IV (17:08)
--- NOTE | 2021-05-31 19:38 | PC.NURSE ---
Addendum entered by Xiao Pickens R.N. 05/31/21 22:57: bladder scan was 526cc, pt stood up at his bedside, but was unable to void. in and out cath was done at 2255, 650cc out. Original Note: upon assessment pt's heart rate was 43-45bpm. while sleeping his HR was 38bmp. pt also felt light headed when in semi-fowlers position, but other segura fine when laying in bed. notified Dr. Montoya. VTO for 250cc bolus. after bolus pt was able to tolerate sitting on the side of the bed. pt unable to urinate. bladder scan was 225cc around 1600
[2021-05-31] MEDS: TAMSULOSIN 0.4 MG CAPSULE PO (20:40)
[2021-05-31] MEDS: DOCUSATE 100 MG CAPSULE PO (20:42)
[2021-05-31] MEDS: ATORVASTATIN 20 MG TABLET PO (20:42)
[2021-05-31] MEDS: PANTOPRAZOLE DR 20 MG TABLET PO (20:42)
[2021-05-31] MEDS: ASPIRIN EC 81 MG TABLET PO (20:42)
--- NOTE | 2021-05-31 23:50 | PC.NURSE ---
Patient is alert and oriented. [place] and wears bilateral hearing aids. Breath sounds CTA with RA sat of 97%. HRR with rate of 47 bpm but denies dizziness or lightheadedness. Denies nausea. BT present and is passing flatus. Urinary retention; had in/out cath performed just prior to shift change with UOP of 650cc. Is able to move himself in bed. Gait not assessed at this time. Aquacel dressing wrapped with jennifer to left knee; CDI. Denies pain. CMS is intact and able to lift leg off bed. Is wearing bilateral calf SCD's. Fall risk score is moderate and bed alarm is activated.
[2021-06-01] MEDS: IBUPROFEN 400 MG TABLET PO ×3 (01:21→08:25)
[2021-06-01 04:20] VITALS: BP 141/66; PULSE 54; RESP 18; TEMP 37.1; O2SAT 98
[2021-06-01] MEDS: OXYCODONE IR 10 MG TABLET PO (05:27)
[2021-06-01] MEDS: LEVOTHYROXINE 125 MCG TABLET PO (05:30)
[2021-06-01 05:49] LABS: Hematocrit 38.2 % (41-53); Hemoglobin 12.3 g/dL (13.5-17.5)
--- NOTE | 2021-06-01 07:47 | PM.DS.1 ---
History of Present Illness History of Present Illness Date Patient Seen: 06/01/21 Time Patient Seen: 07:47 Chief complaint: OPB Narrative: Patient's pain is [id number]. Denies fever or chills. No nausea or vomiting. Patient does have caregiver home to assist him. Discharge Providers Provider Discharge Date: 06/01/21 Primary care physician: Louie Young MD Consults: 05/31/21 10:25 Consult to Discharge Planning Routine Comment: Consult to Physical Therapy Evaluate & Treat Comment: Physician Instructions: postop TKA protocol Discharge provider: Samuel Cline PA-C Summary Hospital Course Discharge Diagnosis: Left knee osteoarthritis Hospital Course: Procedure & Clinicians Procedure: Left total knee replacement Same procedure as scheduled: Yes Indications: The patient has had progressively worsening left knee pain with radiographic changes consistent with arthritis. Non-operative management has failed and the patient has requested total knee replacement. The risks, benefits and alternatives to surgery were discussed with the patient prior to proceeding. Risks discussed included, but were not limited to, failure to relieve pain, stiffness, infection, nerve damage, deep venous thrombosis, pulmonary embolism, stroke, coma, heart attack, permanent paralysis and , as well as the potential need for eventual revision of the prosthetic. Surgeon: Chris Montoya Construction Trades Teacher: Samuel Cline Anesthesia Type: Local Operative Notes Findings: Severe lateral and patellofemoral osteoarthritis with relative preservation of the medial compartment. Valgus deformity with hypoplastic lateral femoral condyle. Closure Type: primary Specimen(s): none sent Prosthetic devices, grafts, tissues, transplants, or devices: Implants used in this procedure were manufactured by the [employer] and included the BCS II Journey total knee replacement with a size 6 cobalt chromium femoral component, a size 7 non porous tibial base plate, a 9 mm cross-linked polyethylene tibial insert and a 35 mm oval Elda II patella. Applied: implant(s) Estimated Blood Loss (mL): 50 Blood products transfused: none Tourniquet time (min): 54 Patient admitted to the hospital for left total knee arthroplasty. Patient consented to the same. Patient taken to the operating room yesterday underwent left total knee arthroplasty. Patient back in his room recovering well as in stable condition. Patient will be discharged home today in stable condition. Status at Discharge Cognitive/behavioral status at discharge: at baseline, oriented Functional status at discharge: uses cane/walker Overall status at discharge: patient is progressing back to baseline Exam Vital Signs (past 8 hours): - 06/01/21 04:20 Temperature 98.7 F Pulse Rate 54 L Respiratory Rate 18 Blood Pressure 141/66 H Pulse Oximetry 98 Oxygen Delivery Method Room Air,CPAP Oxygen Flow Rate 0 Narrative Exam Narrative: 80-year-old male resting comfortably in bed in no apparent distress. Dressing Clean, dry, intact.. Neurovascular status is intact bilateral lower extremities. Objective Labs Result Diagrams: 06/01/21 05:10 Labs: Laboratory Results - last 24 hr 06/01/21 05:10 Hgb 12.3 L Hct 38.2 L PFSH Medical History (Updated 04/23/20 @ 13:30 by Alice Baeza RN) Bilateral knee pain Easy bruisability Hearing impaired Heartburn HLD (hyperlipidemia) Hypothyroid EH on CPAP Osteoarthritis RBBB Sinus drainage Stomach ulcer (2019) Surgical History (Updated 05/25/21 @ 13:06 by Alice Baeza RN) History of arthroplasty of right knee (04/27/20) History of bunionectomy of right great toe History of penile implant History of repair of left rotator cuff History of vasectomy Hx of bilateral cataract extraction Hx of eye surgery Hx of tonsillectomy S/P epidural steroid injection Social History household members: spouse Smoking Status: Never smoker alcohol intake: never Discharge Assessment & Plan Assessment and Plan Assessment: Patient progressing as expected status post left total knee arthroplasty. Plan of Treatment: Discharge home today in stable condition. Discharge Plan Discharge Plan Patient Disposition: Home Provider Discharge Comment: Discharge home today after physical therapy is safe for environment Discharge orders & Medications Discharge Orders: Discharge (Order); Ordered 06/01/21 Ordered By: Samuel Cline Prescriptions: New acetaminophen 325 mg Tablet 650 mg PO TID Qty: 60 RF: 0 aspirin 81 mg Tablet,Delayed Release (Dr/Ec) 81 mg PO BID Qty: 60 RF: 0 ibuprofen 400 mg Tablet 400 mg PO Q4HR Qty: 60 RF: 0 oxycodone 5 mg Tablet 5 mg PO Q3HR PRN (Reason: Pain, Moderate (4-6)) Qty: 60 RF: 0 Continued atorvastatin 20 mg Tablet 20 mg PO BEDTIME RF: 0 polyethylene glycol 3350 [Miralax] 17 gram Powder In Packet 17 g PO DAILY RF: 0 tamsulosin 0.4 mg Capsule 0.4 mg PO BEDTIME RF: 0 fluticasone propionate [Flonase Allergy Relief] 50 mcg/actuation [place],Suspension 2 spray INTRANASAL DAILY Qty: 0 RF: 0 omeprazole 20 mg Tablet,Delayed Release (Dr/Ec) 20 mg PO BID RF: 0 levothyroxine 125 mcg Capsule 125 mcg PO DAILY RF: 0 melatonin 10 mg Tablet 5 mg PO BEDTIME PRN (Reason: Sleep) RF: 0 Discontinued oxycodone 5 mg Tablet 5 mg PO Q4H PRN (Reason: Pain, Moderate (4-6)) Qty: 40 RF: 0 Follow up/Referrals: Louie Young MD [Primary Care Provider] - Chris Montoya MD [Physician] - (2 weeks) Diet/Activity/Treatments Diet: Diet as Tolerated Activity: Weight-bearing as tolerated. Cold/Heat Therapy: Apply ice as needed Skin/Wound/Dressing Care Dressing: May remove Evelio wrap in 48-72 hours. Leave dressing in place. Keep dressing clean and dry Visit Report/Discharge Packet Instructions: DI for Knee Replacement Stand Alone Forms: Surgery Discharge Discharge Data Primary Care Provider: Louie Young Attending Provider: Chris Montoya
[2021-06-01 07:49] VITALS: PULSE 83; RESP 16; O2SAT 95
[2021-06-01 08:00] VITALS: BP 142/63; PULSE 59; RESP 16; TEMP 36.3; O2SAT 96
[2021-06-01] MEDS: DOCUSATE 100 MG CAPSULE PO (08:25)
[2021-06-01] MEDS: PANTOPRAZOLE DR 20 MG TABLET PO (08:25)
[2021-06-01] MEDS: polyethylene glycoL 3350 17 GM POWD.PACK PO (08:25)
[2021-06-01] MEDS: ASPIRIN EC 81 MG TABLET PO (08:25)
[2021-06-01] MEDS: ACETAMINOPHEN 325 MG TABLET 650 MG PO (08:26)
[2021-06-01] MEDS: OXYCODONE IR 5 MG TABLET PO (08:28)
--- NOTE | 2021-06-01 10:19 | PT.IPTN ---
Current Diagnoses Unilateral primary osteoarthritis, left knee (06/01/21) Surgery Performed Operation Date: 05/31/21 07:45 Actual Procedures p Total Knee Arthroplasty(Left) - Chris Montoya MD Physical Therapy Treatment Note M2 PT-IP Current Condition Start: 05/31/21 15:26 Freq: NEEDED Status: Discharge Protocol: Document 05/31/21 15:27 DLM (Rec: 05/31/21 15:40 DLM [id number]) Physical Therapy Current Condition Current Condition Evaluation Date 05/31/21 Treatment Diagnosis Left TKA, impaired gait/ mobility Onset Date 05/31/21 Precautions Other Precautions low HR after surgery Weight Bearing Status Weight Bearing Status Weight Bear as Tolerated M3 PT-IP Subjective Start: 05/31/21 15:26 Freq: NEEDED Status: Discharge Protocol: Document 06/01/21 10:19 AW (Rec: 06/01/21 11:39 AW [id number]) Subjective Physical Therapy Visit Type Type Treatment Note Visit Start Time 09:53 Visit Stop Time 10:19 Total Visit Minutes 26 Notes VSS per nursing with no dizziness. Number of ASSURANCE SENIOR Visits 0 Physical Therapy Visit Comments Patient Comments Pt is willing to participate with PT Therapy Pain Assessment Pain When Pain Assessed During Mobility Pain Present Pain Present Pain Reported Location l knee Intensity 5 Scale Used Numeric (0 - 10) Description Aching,With Movement Pain Management Techniques Apply Cold,Elevation,Timing of Activity with Medications M4 PT-IP Mobility and Gait Start: 05/31/21 15:26 Freq: NEEDED Status: Discharge Protocol: Document 06/01/21 10:19 AW (Rec: 06/01/21 11:39 AW [id number]) PT-Transfer Assessment Sit to and From Stand Sit to and from Stand Standby Assistance,Use of Upper Extremities Equipment Transfer Assistive Device Gait Belt,Front Wheeled Walker Transfers Transfer Destination Chair Transfer Technique Stand Step Pivot Transfer Ability Level of Assist Standby Assistance,Use of Upper Extremities Comments Mobility Comments Pt was standing at the sink with COMPONENT DESIGN ENGINEER present as PT arrived . He completed brushing his teeth with good standing balance. He then used the FWW to ambulate in the halls a total of 200 feet SBA. Gait was notable for increased trunk flexion but pt was able to correct partially in response to cues. He completed stair training and returned to the room, transferring safely to the chair SBA. Pt was left with call light and tray table in reach to prepare for discharge. Gait Assessment Gait Gait Assistance Required: Standby Assistance Distance (Feet) 200 Able to Maintain Weight Bearing Status Yes During Gait Assistive Devices Assistive Device Front Wheeled Walker Gait Deviations General Gait Pattern Antalgic,Decreased Stride Length,Decreased Feet Clearance,Flexed Trunk,Wide Based Gait Factors Limiting Gait Function Factors Limiting Gait Function Decreased Strength,Limited Range of Motion,Pain Comments Gait Comments See mobility comments for details. Stair Climbing Assessment Evaluation Level of Assist On Stairs Standby Assistance Devices Stair Climbing Assistive Devices Left Railing,Right Railing Technique/Endurance Stair Climbing Direction Ascend and Descend Stair Climbing Technique Step to Step Number of Steps Climbed 4 Stair Climbing Set # Repetitions (reps) 1 Comments Stair Climbing Comments After education and demonstration, pt was able to sequence stair climbing without additional cues. He used B rails as he will at home. PT-Balance Assessment Sitting Balance and Reactions Static Sitting Balance Ability Good Dynamic Sitting Balance Ability Good Standing Balance and Reactions Static Standing Balance Ability Good Dynamic Standing Balance Ability Fair Device Used FWW M5 PT-IP Objective Assessments Start: 05/31/21 15:26 Freq: NEEDED Status: Discharge Protocol: Document 05/31/21 15:27 DLM (Rec: 05/31/21 15:40 DLM [id number]) Orientation Orientation/Cognition Level of Alertness Alert Orientation Name,Age,Birthday,Month,Date, Year,Day of Week,Place, Situation Language Function Ability No Deficits Noted Safety Awareness Understands Safety Issues Memory Description No Deficits Noted Gross Range of Motion Upper Extremity ROM Assessment Bilaterally Impaired Impairments hx rotator cuff sx left Lower Extremity ROM Assessment Left Impaired Impairments knee 20-90 degrees AROM Strength Upper Extremity Strength Assessment Within Functional Limits Lower Extremity Strength Assessment Left Impaired Hip SLR with extensor lag Knee at least 3+/5 Ankle DF 4+/5 Coordination Assessment Gross Coordination Gross Coordination WNL Sensation Assessment Sensation Gross Sensation Left LE Impaired Sensation Description Numbness Comments Sensation Comments mild numbness in left LE post- op, jennifer wrap in place Muscle Tone Muscle Tone WNL Yes M6 PT-IP Treatment Start: 05/31/21 15:26 Freq: NEEDED Status: Discharge Protocol: Document 06/01/21 10:19 AW (Rec: 06/01/21 11:39 AW [id number]) Physical Therapy Treatment Exercises Exercises Ankle Pumps,Quad Sets,Passive Knee Extension Hang,Seated Knee Flexion/Extension Knee ROM Measurement 4-90 Education Education Provided Weight Bearing Status,Safety Other Treatments Other Treatment Performed Reviewed ther ex for independent performance. M7 PT-IP Assessment and Plan Start: 05/31/21 15:26 Freq: NEEDED Status: Discharge Protocol: Document 06/01/21 10:19 AW (Rec: 06/01/21 11:39 AW [id number]) PT Summary Assessment and Plan Summary Impairments Pain,ROM,Strength,Balance,Bed Mobility,Transfers,Gait, Activity Tolerance Progress Towards Goals Progressing Toward Goals,Safe For Discharge Assessment Summary Pt's vital signs were stable today and pt denied dizziness. He completed all mobility with FWW SBA. He notes he recovered well from R TKA one year ago and feels he knows what to expect. Encouraged pt to continue with short bouts of mobility at home before starting outpatient PT next week. Pt is safe to discharge with spouse assist once medically cleared. Goals Bed Mobility Goal Independent Transfer Goal Independent,Front Wheeled Walker Gait Goal Standby Assistance,Front Wheel Walker Gait Distance 150 feet Other Goals Up and down 4 steps with bilateral rails and SBA Days to Meet Goals 2 Frequency of Treatment Frequency Of Treatment Discharge Recommendations To Nursing Amount of Assist Needed Standby Assistance Discharge Recommendations PT Discharge Recommendations Home with Assistance, Outpatient PT Transportation Needs at Discharge Private Vehicle
--- NOTE | 2021-06-01 10:46 | CM.DANOTE ---
DCP/Assessment: Reviewed chart. Patient is a 80yr old male admitted to [facility] for elective left TKA performed on 05-31-[address] Montoya. PCP is Louie Young. Primary payor is 1)Medicare 2)[employer]. Met with patient this AM explained CM/SW role. Patient alert and oriented, resting in bed at time of visit. Patient reports that he plans to d/c home when medically stable. Patient reports that he has all needed DME and outpatient therapy has been arranged in [place]. At this time patient to d/c home today. Spouse will provide transport. Patient seen and cleared by PT. P: Home today. ALISSA Patrick Discharge Planning/Care Management CM Discharge Assessment Start: 06/01/21 10:41 Freq: Status: Active Protocol: Document 06/01/21 10:41 KJS (Rec: 06/01/21 10:45 KJS [id number]) Discharge Planning Assessment Assigned Web Marketing Coordinator ALISSA Patrick Contact Information Vanessa Pierre (spouse) # [phone] Advance Directives? No History Provided By Patient,Medical Record Prior Living Arrangements House Household Members spouse Type of transporation used prior to Drives own vehicle admit Independent with ADL's Yes Is patient alert and oriented? Yes Caregiver for Another No DME Already Rented / Owned FWW / Walker Patient/Family Preference OP PT Therapy Barriers to Discharge No Discharge Plan Home Transportation Arrangement Spouse to provide transport Referrals Initiated None needed Whiteboard Updated in Patient Room with Yes name and ext. # of Web Marketing Coordinator Review Status In Process Next Review Type Continued Stay Review Pre-Anesthesia Assessment Start: 05/25/21 12:50 Freq: Status: Complete Protocol: Document 05/25/21 12:50 CAB (Rec: 05/25/21 13:17 CAB [id number]) Pre-Anesthesia Assessment PAC Comment Difficult IV start Patient Information Reviewed Via Phone Assessment Assessment Completed With Patient Comment Labs/EKG done per pt, not here , COVID screen needs to schedule Primary Care Provider Louie Young Seen Specialist in Last 12 Months Yes Specialist Seen Orthopedist Primary Language Kiswahili Preferred Language Kiswahili Manager Social Responsibility Required No Height 172.72 cm Weight 81.647 kg Body Mass Index (BMI) 27.3 Hearing Ability Hard of Hearing,Use of Hearing Aid Visual Assist Glasses Dentition Type Teeth, Natural Present,Dental Implants Barriers to Learning Auditory Other Aids Yes: CPAP Hx Anesthesia Reactions No Hx Family Anesthesia Reaction No Hx Malignant Hyperthermia No Hx Blood Transfusions Yes: GI bleed 2019 transfused 5 units Hx Blood Transfusion Reaction No Anesthesia Review Requested No alcohol intake never Smoking Status Never smoker Substance Use Type does not use Pain Present Pain Reported Musculoskeletal Symptoms Abnormal Gait,Back Pain, Difficulty Walking,Joint Pain History of Falling (Recent or History of No ) Patient is completely paralyzed or No completely immobile Mental Status Oriented to own ability Is patient on oxygen? No Does patient have GUADARRAMA/SOB No Hx Sleep Apnea Yes CPAP/BIPAP use prescribed and used routinely Will Bring CPAP/BIPAP DOS Yes Currently Taking a Beta Prashanth No Can You Climb a Flight of Stairs Without Yes SOB Hx Chest Pain No Hx SOB No Hx Syncope or Dizziness No Anti-Coagulant Therapy No Has a Surface Plate Inspector No Cardiac Testing No Hx Pacemaker/ICD No Pacemaker Rep Required? No Diet Type At Home Regular dysphagia No Genitourinary Symptoms Change in Urinary Stream Urinary Catheter Present No Hx Urinary Self Catheterization No Diabetes No Hx Drug Resistant Organism No Presence of External or Internal Medical Yes: CPAP, bilat eye lens, Devices penile implant, right knee Have you had any close contact with No someone diagnosed with COVID-19? Marital Status Lives With spouse Prior Living Arrangements House Number of Floors (Floors) Two Floors Support System Child/Children,Spouse Patient Discharge Plan Description Return Home Comment Pt advised possible same day surgery per surgeon Feels Safe in Current Environment Yes Been Physically Hurt or Threatened By a No Person in Current Environment Do you have thoughts of harming yourself None or others? Are you currently considering suicide? No Do you have a plan to hurt yourself or No Plan others? Do You Have Any Spiritual Beliefs That No May Affect Your HC Choices? Do You Have Any Cultural Practices That No May Affect Your HC Choices? Who Can We Speak to About Patient's Care Family, friends Identifying Code for Release of Patient Declines to issue Information Health Care Proxy/Next of Kin Vanessa () Health Care Proxy or [phone] Emergency Contact Name Vanessa () Fabiola (daughter ) Emergency Contact Phone Number Vanessa: [phone] or [phone] Fabiola: [phone] Advance Directives? Yes: feels it's part of the living will Power of Manager Food Beverage No: Unsure PAC Instructions Durable medical equipment, Medications to take/avoid, Nasal antibiotic,No ETOH/ petroleum product on skin DOS, NPO,Post-op transportation, Sensory aids,Sturdy shoes/ comfortable clothes,Do not bring valuables and remove jewelry
--- NOTE | 2021-06-01 11:21 | PC.NURSE ---
Day shift: Paperwork signed and all questions answered. Pt has all personal belongings. scripts sent to Pts pharmacy electronic. MIKIE wrap and Aquacel remain CDI. Good CMS and PPP. Pt left unit at approx 1125. His spouse is driving him home to [place]. Taken to that car via WC by HAYDEN Zayas. Pt also reported that he had his other knee done about 1 year ago.
--- NOTE | 2021-06-01 11:39 | PC.NURSE ---
Day shift: Pt's spouse is not here yet to pick him up. Pt back in room for now. Will wait for her to call. Call light in reach. Pt sitting comfortably in WC for now.
--- NOTE | 2021-06-01 12:45 | PC.NURSE ---
Day shift: Pt's spouse here to pick him up. Taken to that car at approx 1235 by HAYDEN Pizarro (taken in WC). Pt did have lunch here and he had no c/o pain or discomfort.
== END 2021-06-01 11:26 | disposition home or self-care (01) ==
LOC: OR 10:27 → AC 10:27
PROVIDERS: Admitting Provider Orthopaedic Surgery; PCP Internal Medicine; Referring Provider Orthopaedic Surgery; Visit Provider Orthopaedic Surgery
PROC: 0SRD0JZ Replacement of Left Knee Joint with Synthetic Substitute, Open Approach (ICD-10-PCS; CPT 27447; principal; 2021-05-31 07:45)
DX: M17.12 Unilateral primary osteoarthritis, left knee (principal); M21.062 Valgus deformity, not elsewhere classified, left knee; G47.33 Obstructive sleep apnea (adult) (pediatric); E03.9 Hypothyroidism, unspecified; E78.5 Hyperlipidemia, unspecified
CPT/HCPCS: 27447; 36415; 73560; 85014; 85018; 94762; 97110; 97116; 97162; C1776; G0378; C9290; J0690; J2250; J2270; J2274; J2704; J3010

== ENCOUNTER → 2021-06-10 14:48 | Outpatient (CLI) | payer MEDICARE, OTHER, SELFPAY ==
[2021-05-31 12:58] VITALS: BMI 27.3
--- NOTE | 2021-06-10 | DI.US.S_ITS ---
PROCEDURE: US PERIPH VENOUS LOW EXTREM LT INDICATIONS: RULE OUT DEEP VEIN THROMBOSIS POST KNEE REPLACEMENT TECHNIQUE: Real-time imaging, as well as color and pulse Doppler interrogation, were performed of the lower extremity deep veins from the inguinal ligament to the popliteal fossa. COMPARISON: None. FINDINGS: The common femoral, femoral and popliteal veins are normally compressible, and free of intraluminal thrombus. Color and pulse Doppler demonstrate normal phasic intraluminal flow. There is normal augmentation response to distal compression maneuver. Edema is seen in the left popliteal fossa. IMPRESSION: No evidence of deep venous thrombosis. Dictated by: Santana Rodríguez M.D. on 06/10/2021 at 15:31 Approved by: Santana Rodríguez M.D. on 06/10/2021 at 15:51
== END ==
PROVIDERS: PCP Internal Medicine; Referring Provider Orthopaedic Surgery; Visit Provider Orthopaedic Surgery
DX: M25.462 Effusion, left knee (principal); Z96.652 Presence of left artificial knee joint
CPT/HCPCS: 93971

== ENCOUNTER → 2022-02-16 11:06 | Outpatient (CLI) | payer MEDICARE, OTHER, SELFPAY ==
[2022-02-07 14:11] VITALS: BMI 27.3
[2022-02-16 12:25] LABS: COVID19 -Nasal RAPID Negative (Negative)
== END ==
PROVIDERS: PCP Internal Medicine; Visit Provider Family Medicine Sleep Medicine
DX: Z20.822 Contact with and (suspected) exposure to COVID-19 (principal)
CPT/HCPCS: 87635; C9803

== ENCOUNTER 2022-02-18 11:24 | Day surgery (SDC) | payer MEDICARE, OTHER, SELFPAY ==
[2022-02-07 14:11] VITALS: BMI 27.3
[2022-02-16 15:02] VITALS: BMI 29.5
[2022-02-18] VITALS (12 sets, daily range): BP systolic 99–182; BP diastolic 52–92; PULSE 42–57; RESP 10–21; TEMP 35.6–37.2; O2SAT 95–100; BMI 29.5
[2022-02-18] MEDS: ACETAMINOPHEN 325 MG TABLET 975 MG PO (11:59)
[2022-02-18] MEDS: CELECOXIB 200 MG CAPSULE PO (12:00)
[2022-02-18] MEDS: PREGABALIN 75 MG CAPSULE PO (12:00)
[2022-02-18] MEDS: LACTATED RINGERS 1,000 ML 42 ML IV (12:26)
--- NOTE | 2022-02-18 12:41 | PM.PREOP ---
Pre-operative Note COVID-19 COVID-19 status: Negative Result date/Date tested (Pos, Neg/Pending): 02/16/22 Interval Note History & Physical reviewed/Exam performed by Physician: Yes Changes to H&P: No
[2022-02-18] MEDS: CEFAZOLIN 2 GM/20 ML SYRINGE IV (13:18)
--- NOTE | 2022-02-18 13:40 | SUR.OPER ---
Addendum entered by Naomi Howe R.N. 02/18/22 13:41: Supine on padded OR bed, head on pillow, arms secured on padded arm boards at <90 degrees abduction with rolled gel pad placed under wrists, legs uncrossed, safety belt across abdomen. Original Note: Supine on padded OR bed, head on pillow, arms secured on padded arm boards at <90 degrees abduction, legs uncrossed, safety belt at thigh, tape over blanket over lower legs.
[2022-02-18] MEDS: BUPIVACAINE 0.5% (PF) 30 ML, EPINEPHrine 0.15 MG INJ (14:00)
--- NOTE | 2022-02-18 14:31 | P.OP_ITS ---
Operative Date/Time/Diagnoses Date of procedure: 02/18/22 Time of procedure: 14:10 Pre-op diagnosis: Dislocated patella, left total knee replacement. Post-op diagnosis: same Procedure & Clinicians Procedure: Insall patellar realignment with lateral release and advancement of vastus medialis obliquus. Same procedure as scheduled: Yes Indications: The patient is an 81-year-old man who previously had a left total knee replacement. Postoperative x-rays and long-term follow-up x-ray showed mild lateral patellar tilt but no evidence for patellar instability. He presented to the office recently with a patellar dislocation. He agreed to surgery after discussion the risks benefits and alternatives. Risks discussed included but were not limited to: Failure to provide relief, recurrent dislocation, stiffness, infection, nerve damage, deep venous thrombosis, pulmonary embolism, stroke, myocardial infarction, permanent paralysis, aspiration pneumonia and . Surgeon: Chris Montoya Click Yes if Unassisted: Yes Anesthesia Type: General, Spinal and Local Operative Notes Findings: Lateral dislocation of the patella with satisfactory reduction and normal patellar tracking after the procedure. Closure Type: primary Specimen(s): none sent Estimated Blood Loss (mL): 10 Blood products transfused: none Tourniquet time (min): 18 Procedure in detail: The patient was seen in the preoperative area where he identified his left knee as the operative site and this was marked with my initials. He was taken to the operating room where he underwent a spinal anesthetic and then a general anesthetic. Noon a tourniquet was placed about his proximal left thigh. A daytime babysitter-out was performed. The left leg was prepared from the ankle to the tourniquet with ChloraPrep in the usual fashion and draped through sterile drapes. The leg was elevated and exsanguinated with an Esmarch bandage and the tourniquet inflated to 250 mmHg. The previous total knee scar was excised and then carried to the knee with elevation of skin flaps medially and laterally. A arthrotomy was performed along the medial edge of the patella, upper cm of the patellar tendon and into the distal 2 cm of quadriceps above the patella. A lateral release was performed along the lateral border of the patellar tendon to approximately a cm into the distal quadriceps. The patella was easily relocated into the trochlear groove and the vastus medialis obliquus advanced over the patella and patellar tendon and sutured with [id number] #2 Ethibond sutures. After placing the 1st suture I placed the knee through range of motion to confirm central tracking. The remaining sutures were then placed and central tracking was once again confirmed. Wound was irrigated and closed with 3-0 Vicryl the subcutaneous layer, 3-0 barbed suture in the subcuticular layer and Dermabond for skin. An Aquacel Ag dressing was applied followed by an Evelio wrap. The tourniquet was deflated prior to closure and hemostasis was obtained with electrocautery. After dressing placement the patient was awakened from anesthesia in the operating room and transferred to the recovery room in good condition having tolerated the procedure well. Complications: none Post-operative Condition: stable Disposition: PACU Plan for aftercare: The patient will be allowed to weight bear as tolerated and will go through physical therapy for range of motion preservation. He will follow up in the office in 2 weeks. He will be discharged today. Prescription for pain medication have been sent to [facility] in [facility].
--- NOTE | 2022-02-18 14:33 | SUR.PHASEI ---
1423 - Received to PACU after spinal/general anesthesia. Oral airway in place. Chin lift being performed. Nasal trumpet inserted orally by Dr Raymundo. Spontaneous respirations achieved. Placed on 8L simple mask for O2 sats 89-92%. Report received from Dr Raymundo and JAMMIE Brunner. Report given to Tao Montoya RN and care assumed by her.
[2022-02-18] MEDS: ASPIRIN EC 81 MG TABLET PO (15:26)
--- NOTE | 2022-02-18 16:29 | SUR.PHASEII ---
1555 Spoke with patient, denies pain, awaiting spinal to resolve. LE weakness. Soup and sandwich ordered.
--- NOTE | 2022-02-18 18:23 | SUR.PHASEII ---
Pt unable to urinate prior to going home. Discussed with pt and the need to go to the ER if pt has not voided by 2230. Both feel comfortable with the decision to go to local ER if needed. Urinal given to pt in case needed on [address] ride. Pt did well ambulating independently with walker.
== END 2022-02-18 18:23 | disposition home or self-care (01) ==
PROVIDERS: PCP Internal Medicine; Referring Provider Orthopaedic Surgery; Visit Provider Orthopaedic Surgery
PROC: (CPT 27524; principal; 2022-02-18 13:00)
DX: S83.015A Lateral dislocation of left patella, initial encounter (principal); M25.362 Other instability, left knee; Z96.652 Presence of left artificial knee joint; E03.9 Hypothyroidism, unspecified; E78.5 Hyperlipidemia, unspecified; I10 Essential (primary) hypertension; K21.9 Gastro-esophageal reflux disease without esophagitis; G47.33 Obstructive sleep apnea (adult) (pediatric); E66.9 Obesity, unspecified; Z68.30 Body mass index [BMI] 30.0-30.9, adult; W18.2XXA Fall in (into) shower or empty bathtub, initial encounter; Z91.81 History of falling; Y92.002 Bathroom of unspecified non-institutional (private) residence as the place of occurrence of the external cause
CPT/HCPCS: 27422; J0171; J0690; J1100; J2405; J2704

== ENCOUNTER → 2022-05-28 12:41 | Outpatient (CLI) | payer MEDICARE, OTHER, SELFPAY ==
[2022-02-07 14:11] VITALS: BMI 27.3
--- NOTE | 2022-05-28 12:46 | DI.CT.S_ITS ---
PROCEDURE: CT LE LT W CON INDICATIONS: Other instability, left knee TECHNIQUE: Noncontrast 1-1.5 mm axial sections acquired from the mid-patella to the proximal tibia, with coronal and sagittal reformats. COMPARISON: [facility] [place], CR, XR KNEE ARTHRITIC SERIES BI, 02/04/2022, 11:08. [facility] [place], CR, XR KNEE 4+ VIEWS LEFT, 03/22/2022, 13:26. [facility] [place], CR, XR KNEE 4+ VIEWS LEFT, 05/23/2022, 14:35. FINDINGS: Image quality: Excellent. Bones: Postsurgical changes are seen from total knee arthroplasty. There is lateral subluxation of the patella relative to the femoral arthroplasty component, as seen on prior radiographs from 05/23/2022. No acute osseous fracture is seen. Soft tissues: Subcutaneous soft tissue edema or hemorrhage is seen in the prepatellar soft tissues. There is a moderate joint effusion or hemarthrosis. IMPRESSION: 1. Postsurgical changes from total knee arthroplasty. Lateral subluxation of the patella is seen relative to the femoral component. 2. Moderate joint effusion or hemarthrosis. Prepatellar soft tissue edema/hemorrhage is seen. Dictated by: Zander De Oliveira M.D. on 05/28/2022 at 18:16 Approved by: Zander De Oliveira M.D. on 05/28/2022 at 18:19
== END ==
PROVIDERS: PCP Internal Medicine; Referring Provider Orthopaedic Surgery; Visit Provider Orthopaedic Surgery
DX: M25.362 Other instability, left knee (principal); T84.023A Instability of internal left knee prosthesis, initial encounter; M25.462 Effusion, left knee; R60.0 Localized edema
CPT/HCPCS: 73700

== ENCOUNTER → 2022-06-06 12:05 | Outpatient (CLI) | payer MEDICARE, OTHER, SELFPAY ==
[2022-02-07 14:11] VITALS: BMI 27.3
[2022-06-06 13:02] LABS: COVID19 -Nasal RAPID Negative (Negative)
== END ==
PROVIDERS: PCP Registered Nurse; Referring Provider Orthopaedic Surgery; Visit Provider Orthopaedic Surgery
DX: Z20.822 Contact with and (suspected) exposure to COVID-19 (principal); Z01.812 Encounter for preprocedural laboratory examination
CPT/HCPCS: 87635; C9803

== ENCOUNTER 2022-06-08 13:13 | Day surgery (SDC) | payer MEDICARE, OTHER, SELFPAY ==
[2022-02-07 14:11] VITALS: BMI 27.3
[2022-06-08] VITALS (18 sets, daily range): BP systolic 113–209; BP diastolic 70–94; PULSE 44–72; RESP 8–23; TEMP 36.1–37.2; O2SAT 93–100; BMI 27.3
[2022-06-08] MEDS: CELECOXIB 200 MG CAPSULE PO (14:20)
[2022-06-08] MEDS: PREGABALIN 75 MG CAPSULE PO (14:21)
[2022-06-08] MEDS: ACETAMINOPHEN 325 MG TABLET 975 MG PO (14:21)
[2022-06-08] MEDS: LACTATED RINGERS 1,000 ML 42 ML IV ×2 (14:45→18:45)
--- NOTE | 2022-06-08 15:22 | SUR.PREOP ---
06/08/[id number] ready for surgery. awaiting to go in. Moved into Block room in anticipation for potential block preop. patient states comfortable. call light at side. Hand off given to Jaky AGUDELO.
--- NOTE | 2022-06-08 15:55 | PM.PREOP ---
Pre-operative Note COVID-19 COVID-19 status: Negative Result date/Date tested (Pos, Neg/Pending): 06/06/22 Interval Note History & Physical reviewed/Exam performed by Physician: Yes Changes to H&P: No
[2022-06-08] MEDS: CEFAZOLIN 2 GM/20 ML SYRINGE IV (17:05)
--- NOTE | 2022-06-08 17:28 | SUR.OPER ---
Supine on padded OR bed. Pillow under head, arms secured on padded armboards <90 degree abduction. Safety belt across torso. Non-operative leg secured with tape over blanket over lower leg. Operative leg in control of the Surgeon, sterile bump under lower leg. Patients glasses placed in belongings bag by Taya Singleton RN curing machine operator who conducted patient pre-op interview. Bilateral hearing aids remain in patients ears.
--- NOTE | 2022-06-08 18:05 | PM.OP.1 ---
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 Underwent a soft tissue realignment for patellar instability however shortly after surgery he had a large hematoma and a recurrence of his instability, he has returned for revision reconstruction. A preoperative CT scan was obtained to confirm there was no abnormality of femoral component rotation. Risks discussed included but were not limited to failure to improve, stiffness, infection, nerve damage, deep venous thrombosis, pulmonary embolism, stroke, myocardial infarction, permanent paralysis and . Surgeon: Chris Montoya Click Yes if Unassisted: Yes Anesthesia Type: General Operative Notes Findings: Centralized tracking of the patella after completion of the procedure. Closure Type: primary Specimen(s): other (Swabs for culture) Estimated Blood Loss (mL): 50 Blood products transfused: none Tourniquet time (min): 20 Procedure in detail: The patient was seen in the preoperative area where he identified the left knee as the operative site and this was marked with my initials. He was taken to the operating room and placed on the operating room table in a supine position. He underwent the induction of a general anesthetic. He received preoperative antibiotics. A tourniquet was placed about his proximal left thigh. A sql database administrator-out was performed. The left leg was prepared from the toes to the tourniquet with ChloraPrep in the usual fashion and draped through sterile drapes. The leg was elevated and exsanguinated using an Esmarch bandage and the tourniquet inflated to 250 mmHg. The pre-existing total knee incision was reopened by excising the scar. Careful dissection was made through the underlying scar tissue to the layer of the anterior patella and the fascia around the quadriceps muscle. I confirmed that the previous lateral release remained open. There was a palpable area of tissue between the muscle and the quadriceps tendon which appeared to be scar tissue from a dehiscence of the prior repair. This was removed. The sutures from the prior repair were removed. The knee was cultured upon opening the medial parapatellar arthrotomy. The knee was irrigated. We then closed by imbricating the medial side with the vastus medialis being brought over the quadriceps tendon and medial patella and sutured to medialized the patella. This was confirmed as tracking centrally after several stitches were placed before completing the closure. This was done with multiple #2 Ethibond sutures. The tourniquet was then deflated for a total tourniquet time of 20 minutes. Hemostasis was obtained with electrocautery. The wound was then closed with interrupted 3-0 Vicryl in the subcutaneous layer and shree and Dermabond for skin. An Aquacel Ag dressing was applied followed by an Evelio wrap and a knee immobilizer. The patient was transferred to the recovery room in good condition having tolerated the procedure well. Complications: none Post-operative Condition: stable Disposition: PACU Plan for aftercare: The patient will be maintained in the knee immobilizer for 4 weeks after surgery. He will then be placed in a hinged knee brace with 30? of flexion. The flexion will be increased by 30? every 2 weeks until 90? and then the brace will be discontinued. Due to the late hour he will be maintained in the hospital overnight and discharged tomorrow morning.
[2022-06-08] MEDS: HYDROMORPHONE 2 MG INJ IV ×3 (18:27→18:47)
[2022-06-08] MEDS: OXYCODONE IR 5 MG TABLET PO ×2 (18:34→19:30)
[2022-06-08] MEDS: hydrOXYzine pamoate 25 MG CAPSULE PO (18:44)
--- NOTE | 2022-06-08 19:08 | SUR.PHASEI ---
Patient became more relaxed with IV medication, sat down to 91%; put back on O2 at 2LNP. FLACC score does not coorelate to the stated number. Tolerating PO intake well. Dr. Diane notified of elevated BP, entered order; remote pharmacy notified.
[2022-06-08] MEDS: HYDRALAZINE 20 MG/ML VIAL 10 MG IV (19:24)
--- NOTE | 2022-06-08 19:46 | SUR.PHASEI ---
Patient attempting to void, HR in 60s-70s, BP improved by Rx. 1955 Pt unable to void, bladder scanned for 142ml with good image. Patient reassure to know that the volume is not problematic. Plan: call report and transfer patient.
--- NOTE | 2022-06-08 20:26 | SUR.PHASEI ---
Addendum entered by Piedad Estes R.N. 06/08/22 20:55: Addendum - Throughout PACU stay, when patient rated his pain at 8-9, there was no moaning, crying, restlessness, writhing in pain, or other non-verbal indicators of severe pain. Patient did sat that his pain was improving and was down to 3/10 when he arrived to his room. Patient was resting comfortably when in his room (facial grimace over bumps during transfer). Original Note: 2010 to room 218, bed down and locked, call light given, report phoned to JAMMIE Garcia prior to transfer; JAMMIE Lewis upon arrival. Clothing bag, walker, CPAP, and glasses with patient. Patient oriented, quiet, expressed appreciation for care. Skin warm and dry. VS withiin normal parameters when compared to pre-op VS. No questions from patient or staff.
--- NOTE | 2022-06-08 20:45 | PC.NURSE ---
Addendum entered by Joshua Mchugh R.N. 06/08/22 21:28: Patient arrived from PACU on RA, c/o of 3/10 pain in his L leg. Patient hypertensive on arrival. Was able to answer all admission questions appropriately. Patient oriented to room and call light. Vanessa updated on status by patient. Original Note: Patient arrived
[2022-06-08] MEDS: LACTATED RINGERS 1,000 ML 100 ML IV (20:52)
[2022-06-08] MEDS: ACETAMINOPHEN 325 MG TABLET 650 MG PO (20:57)
[2022-06-08] MEDS: IBUPROFEN 400 MG TABLET PO (20:57)
[2022-06-08] MEDS: PANTOPRAZOLE DR 20 MG TABLET PO (20:57)
[2022-06-08] MEDS: DOCUSATE 100 MG CAPSULE PO (20:58)
[2022-06-08] MEDS: ASPIRIN EC 81 MG TABLET PO (20:58)
[2022-06-08] MEDS: ATORVASTATIN 20 MG TABLET PO (20:58)
[2022-06-08] MEDS: TAMSULOSIN 0.4 MG CAPSULE PO (20:58)
[2022-06-08] MEDS: MELATONIN 3 MG TABLET 6 MG PO (22:49)
[2022-06-09 03:12] VITALS: BP 122/62; PULSE 52; RESP 16; TEMP 36.9; O2SAT 95
[2022-06-09 05:37] LABS: Hemoglobin 13.1 g/dL (13.5-17.5)
[2022-06-09] MEDS: LEVOTHYROXINE 125 MCG TABLET PO (06:38)
--- NOTE | 2022-06-09 08:29 | PM.DS.1 ---
History of Present Illness History of Present Illness Date Patient Seen: 06/09/22 Time Patient Seen: 08:29 Chief complaint: Knee pain Narrative: Patient states his pain is mild. Denies fever or chills. No nausea vomiting. Discharge Providers Provider Discharge Date: 06/09/22 Primary care physician: BREE Elizabeth Consults: 06/08/22 20:10 Consult to Discharge Planning Routine Comment: Consult to Physical Therapy Evaluate & Treat Comment: Physician Instructions: WBAT with walker and knee immob. 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 Underwent a soft tissue realignment for patellar instability however shortly after surgery he had a large hematoma and a recurrence of his instability, he has returned for revision reconstruction.? A preoperative CT scan was obtained to confirm there was no abnormality of femoral component rotation.? Risks discussed included but were not limited to failure to improve, stiffness, infection, nerve damage, deep venous thrombosis, pulmonary embolism, stroke, myocardial infarction, permanent paralysis and . Surgeon: Chris Montoya Click Yes if Unassisted: Yes Anesthesia Type: General Operative Notes Findings: Centralized tracking of the patella after completion of the procedure. Closure Type: primary Specimen(s): other (Swabs for culture) Estimated Blood Loss (mL): 50 Blood products transfused: none Tourniquet time (min): 20 Patient admitted to the hospital for the above-mentioned procedure. Patient consented to the same. Patient underwent revision soft tissue realignment for dislocating patella left knee June 08, 2022. Patient back in his room recovering in stable condition. Patient be discharged home today after physical therapy. Status at Discharge Cognitive/behavioral status at discharge: at baseline, oriented Functional status at discharge: uses cane/walker Overall status at discharge: patient is progressing back to baseline Exam Vital Signs (past 8 hours): - 06/09/22 03:12 Temperature 98.5 F Pulse Rate 52 L Respiratory Rate 16 Blood Pressure 122/62 Pulse Oximetry 95 Oxygen Flow Rate 0 Oxygen Delivery Method Room Air Oxygen Flow Rate 0 Objective Labs Result Diagrams: 06/09/22 05:13 Labs: Laboratory Results - last 24 hr 06/09/22 05:13 Hgb 13.1 L Hct 39.0 L PFSH Medical History Bilateral knee pain Easy bruisability Hearing impaired Heartburn HLD (hyperlipidemia) Hypothyroid EH on CPAP Osteoarthritis RBBB Sinus drainage Stomach ulcer (2019) Surgical History History of arthroplasty of left knee (05/31/21) History of arthroplasty of right knee (04/27/20) History of bunionectomy of right great toe History of penile implant History of repair of left rotator cuff History of vasectomy Hx of bilateral cataract extraction Hx of eye surgery Hx of tonsillectomy S/P epidural steroid injection Social History household members: spouse Smoking Status: Never smoker alcohol intake: former Discharge Assessment & Plan Assessment and Plan Assessment: Stable Plan of Treatment: The patient will be maintained in the knee immobilizer for 4 weeks after surgery.? He will then be placed in a hinged knee brace with 30? of flexion.? The flexion will be increased by 30? every 2 weeks until 90? and then the brace will be discontinued.? Multimodal pain management Discharge home today after physical therapy if safe for home environment. Discharge Plan Discharge Plan Patient Disposition: Home Discharge orders & Medications Discharge Orders: Discharge (Order); Ordered 06/09/22 Ordered By: Samuel Cline Prescriptions: New acetaminophen 325 mg Tablet 650 mg PO TID Qty: 60 0RF polyethylene glycol 3350 17 gram Powder In Packet 17 gm PO DAILY Qty: 20 0RF aspirin 81 mg Tablet,Delayed Release (Dr/Ec) 81 mg PO BID Qty: 60 0RF ibuprofen 400 mg Tablet 400 mg PO Q4HR Qty: 60 0RF oxycodone 10 mg Tablet 10 mg PO Q3HR PRN (Reason: Pain, Severe (7-10)) Qty: 60 0RF Continued atorvastatin 20 mg Tablet 20 mg PO BEDTIME polyethylene glycol 3350 [Miralax] 17 gram Powder In Packet 17 g PO DAILY tamsulosin 0.4 mg Capsule 0.4 mg PO BEDTIME fluticasone propionate [Flonase Allergy Relief] 50 mcg/actuation [place],Suspension 2 spray INTRANASAL DAILY Qty: 0 omeprazole 20 mg Tablet,Delayed Release (Dr/Ec) 20 mg PO BID levothyroxine 125 mcg Capsule 125 mcg PO DAILY melatonin 10 mg Tablet 5 mg PO BEDTIME PRN (Reason: Sleep) Discontinued acetaminophen 325 mg Tablet 650 mg PO TID Qty: 60 0RF Follow up/Referrals: Sheila Ojeda FNP-C [Primary Care Provider] - Chris Montoya MD [Physician] - (2 weeks) Diet/Activity/Treatments Diet: Diet as Tolerated Activity: The patient will be maintained in the knee immobilizer for 4 weeks after surgery. He will then be placed in a hinged knee brace with 30? of flexion. The flexion will be increased by 30? every 2 weeks until 90? and then the brace will be discontinued. Cold/Heat Therapy: Apply ice to knee as needed Skin/Wound/Dressing Care Report to your healthcare provider any signs of infection, such as:: chills, fever, increased pain, unusual drainage and unusual redness Dressing: Keep dressing clean and dry Visit Report/Discharge Packet Stand Alone Forms: Surgery Discharge Discharge Data Primary Care Provider: Sheila Ojeda Attending Provider: Chris Montoya
[2022-06-09 08:33] VITALS: BP 138/65; PULSE 61; RESP 18; TEMP 37.2; O2SAT 98
[2022-06-09] MEDS: DOCUSATE 100 MG CAPSULE PO (09:23)
[2022-06-09] MEDS: polyethylene glycoL 3350 17 GM POWD.PACK PO (09:23)
[2022-06-09] MEDS: ASPIRIN EC 81 MG TABLET PO (09:23)
[2022-06-09] MEDS: IBUPROFEN 400 MG TABLET PO ×2 (09:23→12:27)
[2022-06-09] MEDS: ACETAMINOPHEN 325 MG TABLET 650 MG PO (09:23)
[2022-06-09] MEDS: PANTOPRAZOLE DR 20 MG TABLET PO (09:23)
--- NOTE | 2022-06-09 11:30 | PT.IIE ---
Current Diagnoses Other instability, left knee (06/08/22) Presence of left artificial knee joint (06/08/22) Surgery Performed Operation Date: 06/08/22 14:45 Actual Procedures p reconstruction of extensor muscles to fix dislocating patella(Left) - Chris Montoya MD Surgical History (Last Reviewed 06/09/22 @ 08:31 by Samuel Cline PA-C) History of arthroplasty of left knee (05/31/21) History of arthroplasty of right knee (04/27/20) History of bunionectomy of right great toe History of penile implant History of repair of left rotator cuff History of vasectomy Hx of bilateral cataract extraction Hx of eye surgery Hx of tonsillectomy S/P epidural steroid injection Medical History (Last Reviewed 06/09/22 @ 08:31 by Samuel Cline PA-C) Bilateral knee pain Easy bruisability Hearing impaired Heartburn HLD (hyperlipidemia) Hypothyroid EH on CPAP Osteoarthritis RBBB Sinus drainage Stomach ulcer (2019) Physical Therapy Inpatient Evaluation/Re-Eval M1 PT/OT-IP Prior Functional Status Start: 06/09/22 13:40 Freq: NEEDED Status: Discharge Protocol: Document 06/09/22 11:30 AB (Rec: 06/09/22 13:58 AB [id number]) Medical Review Prior Functional Status Medical History Reviewed Yes Communication able to make needs known; needs increase time to respond to questions and instructions Mobility and Gait pt stated that he is modified independent with all mobilities and ambulation using fWW Social History Household Members spouse Living Arrangements House Number of Floors (Floors) Two Floors Number of Stairs To Enter/Railing? pt stays on main level of the house 3 steps B rails to enter from the garage Home Environment High Toilet,Walk in Shower Home Equipment Front Wheel Walker,Grab Bars Near Toilet,Grab Bars In Shower Additional Social History Comment pt has an adjustable bed M2 PT-IP Current Condition Start: 06/09/22 13:40 Freq: NEEDED Status: Discharge Protocol: Document 06/09/22 11:30 AB (Rec: 06/09/22 13:58 AB [email or web address]) Physical Therapy Current Condition Current Condition Evaluation Date 06/09/22 Treatment Diagnosis L TKA rev w/soft ts realignment due to dislocating patella; diff in walking Onset Date 06/08/22 M3 PT-IP Subjective Start: 06/09/22 13:40 Freq: NEEDED Status: Discharge Protocol: Document 06/09/22 11:30 AB (Rec: 06/09/22 13:58 AB [email or web address]) Subjective Physical Therapy Visit Type Type Initial Evaluation Visit Start Time 11:30 Visit Stop Time 12:45 Total Visit Minutes 75 Number of GRAILS [employer] APPLICATION DEVELOPER Visits 0 Physical Therapy Visit Comments Patient Comments agreeable to do PT M4 PT-IP Mobility and Gait Start: 06/09/22 13:40 Freq: NEEDED Status: Discharge Protocol: Document 06/09/22 11:30 AB (Rec: 06/09/22 13:58 AB [email or web address]) PT-Bed Mobility Assessment Supine to Sit Supine to Sit Standby Assistance PT-Transfer Assessment Sit to and From Stand Sit to and from Stand Contact Guard Assistance, Minimal Assistance,1 Person Assistance,Use of Upper Extremities Equipment Transfer Assistive Device Gait Belt,Front Wheeled Walker Orthotic/Prosthetic Devices or Brace: No Transfers Transfer Destination Chair Transfer Technique ambulated Transfer Ability Level of Assist Contact Guard Assistance,1 Person Assistance,Use of Upper Extremities Comments Mobility Comments pt with L knee immobilizer on. completed supine to sit SBA. completed sit to stand min A and cues for techniques. ambulated to the chair using FWW CGA. educated pt on sit to stand techniques. completed sit to stand x 3 with initial min A and cues but able to complete CGA after first attempt. ambulated in the hallway using FWW SBA to CGA ~ 75 ft. educated on stair climbing techniques. complete up/down steps using B rails CGA to min A. Spouse arrived. caregiver training conducted. educated spouse on how to assist pt. spouse assisted pt with sit to stand from the chair and ambulated to the stairs. also able to assist pt with up/ down stair using B rails. assisted back to his room. spouse assisted pt from w/c to chair using fWW. educated spouse on safety belt use and spouse was able to put safety belt on pt. sit<> stand training from EOB and chair and spouse was able to assist pt. pt sat on chair and positioned . educated on car transfers. call light and table placed within reach. Gait Assessment Gait Gait Assistance Required: Standby Assistance,Contact Guard Assist Distance (Feet) 75 Able to Maintain Weight Bearing Status Yes During Gait Assistive Devices Assistive Device Gait Belt,Front Wheeled Walker Orthotic/Prosthetic Devices or Brace: Yes Gait Deviations General Gait Pattern Antalgic,Decreased Stride Length,Decreased Feet Clearance Factors Limiting Gait Function Factors Limiting Gait Function Decreased Activity Tolerance, Decreased Strength,Limited Range of Motion,Pain,Poor Balance,Poor Safety Awareness Stair Climbing Assessment Evaluation Level of Assist On Stairs Contact Guard Assistance, Minimal Assistance Devices Stair Climbing Assistive Devices Left Railing,Right Railing Technique/Endurance Stair Climbing Direction Ascend and Descend Stair Climbing Technique Step to Step Number of Steps Climbed 3 Query Text: Stair Climbing Set # Repetitions (reps) 2 PT-Balance Assessment Sitting Balance and Reactions Static Sitting Balance Ability Normal Dynamic Sitting Balance Ability Good Standing Balance and Reactions Static Standing Balance Ability Fair Dynamic Standing Balance Ability Fair Device Used FWW M5 PT-IP Objective Assessments Start: 06/09/22 13:40 Freq: NEEDED Status: Discharge Protocol: Document 06/09/22 11:30 AB (Rec: 06/09/22 13:58 AB [email or web address]) Orientation Orientation/Cognition Level of Alertness Alert Orientation Name,Place,Situation Language Function Ability Hard of Hearing Safety Awareness Decreased Safety Awareness Memory Description Short Term Impaired Gross Range of Motion Lower Extremity ROM Assessment Left Impaired Impairments L knee on knee immobilizer Strength Lower Extremity Strength Assessment Left Impaired Hip 3+/5 Knee nt Ankle 4-/5 Muscle Tone Muscle Tone WNL Yes M6 PT-IP Treatment Start: 06/09/22 13:40 Freq: NEEDED Status: Discharge Protocol: Document 06/09/22 11:30 AB (Rec: 06/09/22 13:58 AB [email or web address]) Physical Therapy Treatment Education Education Provided Safety M7 PT-IP Assessment and Plan Start: 06/09/22 13:40 Freq: NEEDED Status: Discharge Protocol: Document 06/09/22 11:30 AB (Rec: 06/09/22 13:58 AB [email or web address]) PT Summary Assessment and Plan Potential Rehabilitation Potential Fair Status of Condition at Evaluation Evolving Summary Impairments Pain,ROM,Strength,Balance, Coordination,Sensation,Tone, Cognition,Bed Mobility, Transfers,Gait,Activity Tolerance Assessment Summary caregiver training conducted and spouse is able to assist pt with mobility. pt may go home when medically stable. will benfit from HHPT. Goals Bed Mobility Goal Independent Transfer Goal Independent,Front Wheeled Walker Gait Goal Independent,Front Wheel Walker Gait Distance 200 Other Goals up/down 3 steps B rails mod I Days to Meet Goals 3 Frequency of Treatment Frequency Of Treatment Twice a Day Treatment Plan Physical Therapy Treatment Plan Bed Mobility Training,Transfer Training,Gait Training, Therapeutic Exercise,Balance Retraining,Post Op Education, Discharge Planning,Hot or Cold Pack,Neuromuscular Re-ed, Coordination Retraining,Manual Therapy Precautions Other Precautions LLE knee immobilizer Weight Bearing Status Weight Bearing Status Weight Bear as Tolerated Allowed Weight Bearing Amount (enter % LLE WBAT with knee immobilizer or #) (%) Recommendations To Nursing Amount of Assist Needed 1 Person Assist Discharge Recommendations PT Discharge Recommendations Home with Assistance,Home Health Transportation Needs at Discharge Private Vehicle
--- NOTE | 2022-06-09 12:20 | CM.IDA ---
Initial DCP Assessment Note Pt is an 81 yo male, resident of [facility], now POD#1 from left knee surgery (revision) by Dr Montoya PCP: Sheila Villatoro: KERRIE/Amandeep Field Reviewed chart, pt discussed in multidisciplinary rounds this morning. DC order from Ortho has already been initiated this morning. Met w/patient to introduce self and role; patient eager to return home this afternoon w/spouse to assist. Awaiting clearance from therapy for this plan. [place] No needs expected from DC planning team although will remain available in case this changes today. ALISSA Galvin
[2022-06-09 13:06] VITALS: BP 133/80; PULSE 56; RESP 18; TEMP 37.1; O2SAT 97
--- NOTE | 2022-06-09 13:38 | PC.NURSE ---
Pt is dressed and ready for discharge home with Spouse. IV has been removed. Went over d/c instructions thoroughly to check for understanding regarding-meds, new prescriptions, immobilizer, stroke education, use of narcotics including not driving while on narcotics and drinking plenty of fluids to prevent constipation or dehydration, s/s of infection, and when to follow up with his Ortho Dr. (appt's are already made). Pt and spouse deny further questions and Pt was taken out via w/c to POV by [employer] with Spouse and all belongings.
== END 2022-06-09 13:42 | disposition home or self-care (01) ==
LOC: OR 13:16 → AC 13:16
PROVIDERS: PCP Registered Nurse; Referring Provider Orthopaedic Surgery; Visit Provider Orthopaedic Surgery
PROC: (CPT 27422; principal; 2022-06-08 14:45)
DX: M25.362 Other instability, left knee (principal); Z96.652 Presence of left artificial knee joint; M22.02 Recurrent dislocation of patella, left knee; G47.33 Obstructive sleep apnea (adult) (pediatric); K21.9 Gastro-esophageal reflux disease without esophagitis; E03.9 Hypothyroidism, unspecified
CPT/HCPCS: 27422; 36415; 85014; 85018; 87070; 87075; 87205; 97161; 97530; J0360; J0690; J1100; J1170; J2405; J2704; J3010

== ENCOUNTER → 2024-02-07 11:56 | Outpatient (CLI) | payer MEDICARE, OTHER, SELFPAY ==
[2022-06-08 20:29] VITALS: BMI 27.3
--- NOTE | 2024-02-07 11:59 | DI.MRI.S_ITS ---
PROCEDURE: MR LUMBAR SPINE WO CON INDICATIONS: Spinal stenosis, cervical region TECHNIQUE: Noncontrast sagittal T1 spin echo and T2 fast echo, sagittal STIR, and T2 fast spin echo through the lumbar spine. In cases with scoliosis, additional coronal T2 fast spin echo may be performed. COMPARISON: [facility], MR, MR LUMBAR SPINE WO CON, 02/05/2021, 14:13. FINDINGS: Image quality: Excellent. Alignment and Curvature: There is mild levoconvex scoliotic curvature. Trace retrolisthesis of L1 on L2, L2 on L3 are unchanged. Transitional anatomy is present. For purposes of this exam and in keeping with prior numbering, vertebral bodies are labeled 1 through 5. Bone Marrow: Marrow is of normal overall signal. Reactive endplate changes are present at L1-2. No acute vertebral body compression fractures. Old L1 compression deformity is again noted. Spinal Cord: Conus medullaris terminates at the L2 level. Visualized cord demonstrates normal signal and size. Paraspinous Soft Tissues: No paravertebral masses. Simple left renal cyst. Discs: Multilevel overall moderate disc desiccation most severe at L2-3. T12-L1: No disc bulge, spinal stenosis or foraminal narrowing. L1-L2: Mild disc bulge without spinal stenosis or foraminal narrowing. Facet and ligamentum flavum hypertrophy are present. No interval change. L2-L3: Mild disc bulge with [id number] spinal stenosis. Moderate bilateral foraminal narrowing with facet and ligamentum flavum hypertrophy. No interval change. L3-L4: Mild disc bulge with moderate spinal stenosis. Moderate bilateral foraminal narrowing, right greater than left with facet and ligamentum flavum hypertrophy. No interval change. L4-L5: Mild disc bulge with moderate spinal stenosis. Moderate bilateral, right greater than left foraminal narrowing, unchanged. Mild compression of the exiting right L4 nerve root. Facet and ligamentum flavum hypertrophy are present. L5-S1: Mild disc bulge without spinal stenosis. Moderate left and moderate to severe right foraminal narrowing, questionably minimally progressive on the right. Facet and ligamentum flavum hypertrophy are present. IMPRESSION: Multilevel degenerative changes relatively stable with minimal areas of progression as above. Foraminal narrowing is most prominent at L5-S1 secondary to facet/ligamentum flavum arthropathy. Multilevel moderate spinal stenosis most prominent L3-4, L4-5 secondary to disc bulge with contributing effect of facet/ligamentum flavum arthropathy. Dictated by: Anu Cole M.D. on 02/07/2024 at 19:53 Approved by: Anu Cole M.D. on 02/07/2024 at 20:06
== END ==
LOC: MRI 11:59
PROVIDERS: PCP Registered Nurse; Referring Provider Physical Medicine & Rehabilitation Pain Medicine; Visit Provider Physical Medicine & Rehabilitation Pain Medicine
DX: M48.062 Spinal stenosis, lumbar region with neurogenic claudication (principal); M48.07 Spinal stenosis, lumbosacral region; M47.816 Spondylosis without myelopathy or radiculopathy, lumbar region; M47.817 Spondylosis without myelopathy or radiculopathy, lumbosacral region; M51.36 Other intervertebral disc degeneration, lumbar region; M51.37 Other intervertebral disc degeneration, lumbosacral region
CPT/HCPCS: 72148